=== PATIENT | female | born 1930 | race Hispanic/Latino ===

== ENCOUNTER 2017-07-19 17:38 | Observation (INO) | payer MEDICARE, BC ==
[2017-07-19 18:20] LABS: BASO # 0.1 K/mm3 (0.0-2.0); BASO % 0.9 % (0.0-3.0); EOS # 0.2 (0.0-0.7); EOS % 1.8 % (1.5-5.0); GRAN # 9.21 (1.4-6.5); GRAN % 81.5 % (50.0-68.0); HEMOGLOBIN 13.5 g/dL (12.0-16.0); LYMPH # 1.4 (1.2-3.4); LYMPH % 12.2 % (22.0-35.0); MEAN CELL VOLUME 88.9 fl (80.0-105.0); MEAN CORPUSCULAR HEMOGLOBIN 29.9 pg (25.0-35.0); MEAN CORPUSCULAR HGB CONC 33.6 g/dl (31.0-37.0); MEAN PLATELET VOLUME 9.8 fl (7.0-11.0); MONO # 0.4 (0.1-0.6); MONO % 3.6 % (1.0-6.0); RBC 4.52 10^6/uL (3.5-6.1); RED CELL DISTRIBUTION WIDTH 14.5 % (11.5-14.5); WHITE BLOOD COUNT 11.3 10^3/ul (4.5-11.0)
[2017-07-19 18:35] LABS: INR 1.08 (0.93-1.08); PARTIAL THROMBOPLASTIN TIME 28.7 Seconds (25.1-36.5); PROTHROMBIN TIME 12.3 SECONDS (9.4-12.5)
[2017-07-19 19:07] LABS: ALB/GLOB RATIO 1.2 (1.1-1.8); ALBUMIN 4.6 g/dL (3.0-4.8); ALT/SGPT 30 U/L (7-56); AST/SGOT 34 U/L (14-36); BLOOD UREA NITROGEN 38 mg/dL (7-21); CALCIUM 10.6 mg/dL (8.4-10.5); GFR AFRICAN-AMERICAN 40; GFR NON-AFRICAN AMERICAN 33
[2017-07-19 19:16] LABS: TROPONIN I < 0.01 ng/mL
--- NOTE | 2017-07-19 20:33 | ED PDOC ---
Arrival/HPI - General Chief Complaint: Chest Pain Time Seen by Provider: 07/19/17 19:20 Historian: Patient - History of Present Illness Narrative History of Present Illness (Text): 07/19/17 20:29 A 87 year old female, whose past medical history includes hypertension, LBBB, colon CA, pacemaker, and gout, presents to the emergency department complaining of vague chest discomfort. Patient reports also having resolving gout to left foot. Patient denies any fever, chills, cough, associated shortness of breath or any other complaints. No PMD Past Medical History - Provider Review Nursing Documentation Reviewed: Yes - Infectious Disease Hx of Infectious Diseases: None - Reproductive Menopause: Yes - Cardiac Hx Hypertension: Yes Hx Pacemaker: Yes (2 years ago) - Pulmonary Hx Respiratory Disorders: No - Neurological Hx Neurological Disorder: No - HEENT Hx HEENT Disorder: No - Renal Hx Renal Disorder: No - Endocrine/Metabolic Hx Endocrine Disorders: No - Hematological/Oncological Hx Cancer: Yes (Colon) Hx Chemotherapy: No - Integumentary Hx Dermatological Disorder: No - Musculoskeletal/Rheumatological Hx Gout: Yes Other/Comment: Gout - Gastrointestinal Hx Colostomy: Yes - Genitourinary/Gynecological Hx Genitourinary Disorders: No - Psychiatric Hx Depression: No Hx Emotional Abuse: No Hx Physical Abuse: No Hx Substance Use: No - Surgical History Other/Comment: Colon Resection - Anesthesia Hx Anesthesia Reactions: No Hx Malignant Hyperthermia: No - Suicidal Assessment Feels Threatened In Home Enviroment: No Family/Social History - Physician Review Nursing Documentation Reviewed: Yes Family/Social History: No Known Family HX Smoking Status: Never Smoked Hx Alcohol Use: No Hx Substance Use: No Hx Substance Use Treatment: No Allergies/Home Meds Allergies/Adverse Reactions: Allergies No Known Allergies Allergy (Verified 05/08/15 18:47) Home Medications: Home Meds Medication Instructions Recorded Confirmed Furosemide [Lasix] 20 mg PO DAILY 07/19/17 07/19/17 diltiaZEM CD [Cardizem CD] 240 mg PO DAILY 07/19/17 07/19/17 Review of Systems - Physician Review All systems were reviewed & negative as marked: Yes - Review of Systems Constitutional: absent: Fevers Respiratory: absent: SOB, Cough Cardiovascular: Other (vauge chest discomfort) Physical Exam Vital Signs Reviewed: Yes Vital Signs Temp Pulse Resp BP Pulse Ox 07/19/17 17:58 97.5 F L 70 18 159/72 H 99 Temperature: Afebrile Blood Pressure: Hypertensive Pulse: Regular Respiratory Rate: Normal Appearance: Positive for: Well-Appearing Pain Distress: None Mental Status: Positive for: Alert and Oriented X 3 - Systems Exam Head: Present: Atraumatic, Normocephalic Pupils: Present: PERRL Extroacular Muscles: Present: EOMI Conjunctiva: Present: Normal Mouth: Present: Moist Mucous Membranes Neck: Present: Normal Range of Motion Respiratory/Chest: Present: Clear to Auscultation, Good Air Exchange. No: Respiratory Distress, Accessory Muscle Use Cardiovascular: Present: Regular Rate and Rhythm, Normal S1, S2. No: Murmurs Abdomen: Present: Normal Bowel Sounds. No: Tenderness, Distention, Peritoneal Signs Back: Present: Normal Inspection Upper Extremity: Present: Normal Inspection. No: Cyanosis, Edema Lower Extremity: Present: Normal Inspection. No: Edema Neurological: Present: GCS=15, CN II-XII Intact, Speech Normal Skin: Present: Warm, Dry, Normal Color. No: Rashes Psychiatric: Present: Alert, Oriented x 3, Normal Insight, Normal Concentration Medical Decision Making ED Course and Treatment: 07/19/17 20:31 Impression: 87 year old female with vague chest discomfort. Normal physical exam. Plan: -- EKG -- Chest X-ray -- Aspirin -- Reassess and disposition Progress Notes: Reviewed shows, NSR at 64 bpm. 1st degree AV block. LBBB. 07/19/17 21:00 Chest X-ray reviewed, shows no acute processes. Case discussed with Dr. Deras, who is aware and agrees with plan. Accepts pt in his service. Pt will go to Telemetry observation for chest pain. - Lab Interpretations Lab Results: 07/19/17 18:00 07/19/17 18:00 Lab Results 07/19/17 18:00: Sodium 134, Potassium 4.4, Chloride 94 L, Carbon Dioxide 27, Anion Gap 18, BUN 38 H, Creatinine 1.5 H, Est GFR ( Amer) 40, Est GFR ( Non-Af Amer) 33, Random Glucose 113 H, Calcium 10.6 H, Total Bilirubin 0.8, AST 34, ALT 30, Alkaline Phosphatase 88, Lactate Dehydrogenase 662, Total Creatine Kinase 68, Troponin I < 0.01 D, Total Protein 8.6 H, Albumin 4.6, Globulin 4.0 , Albumin/Globulin Ratio 1.2 07/19/17 18:00: PT 12.3, INR 1.08, APTT 28.7 07/19/17 18:00: WBC 11.3 H, RBC 4.52, Hgb 13.5, Hct 40.2, MCV 88.9, MCH 29.9, MCHC 33.6, RDW 14.5, Plt Count 267, MPV 9.8, Gran % 81.5 H, Lymph % (Auto) 12.2 L, [place] % (Auto) 3.6, Eos % (Auto) 1.8, Baso % (Auto) 0.9, Gran # 9.21 H, Lymph # 1.4, [place] # 0.4, Eos # 0.2, Baso # 0.10 I have reviewed the lab results: Yes - RAD Interpretation Radiology Orders: 07/19/17 18:10 CHEST PORTABLE [RAD] Stat Checkman: ED Physician - EKG Interpretation Interpreted by ED Physician: Yes Type: 12 lead EKG - Medication Orders Current Medication Orders: Discontinued Medications Aspirin (Aspirin) 325 mg PO ONCE STA Stop: 07/19/17 19:29 Last Admin: 07/19/17 19:52 Dose: 325 mg - Scribe Statement The provider has reviewed the documentation as recorded by the Kayli Smith Provider Scribe Attestation: All medical record entries made by the Kayli were at my direction and personally dictated by me. I have reviewed the chart and agree that the record accurately reflects my personal performance of the history, physical exam, medical decision making, and the department course for this patient. I have also personally directed, reviewed, and agree with the discharge instructions and disposition. Disposition/Present on Arrival - Present on Arrival Any Indicators Present on Arrival: No History of DVT/PE: No History of Uncontrolled Diabetes: No Urinary Catheter: No History of Decub. Ulcer: No History Surgical Site Infection Following: None - Disposition Have Diagnosis and Disposition been Completed?: Yes Diagnosis: Chest pain Disposition: HOSPITALIZED Disposition Time: 21:12 Patient Problems: Current Active Problems Problem Status Onset Chest pain Acute Condition: STABLE
[2017-07-19 23:41] VITALS: BMI 39.0
[2017-07-20 05:20] VITALS: O2SAT 98
--- NOTE | 2017-07-20 09:42 | RAD ---
HISTORY: Chest discomfort COMPARISON: 05/08/2015 FINDINGS: LUNGS: The lungs are well inflated and clear. PLEURA: No significant pleural effusion identified, no pneumothorax apparent. CARDIOVASCULAR: There is stable mild cardiomegaly. There is a left-sided dual lead transvenous permanent pacing device. OSSEOUS STRUCTURES: No significant abnormalities. VISUALIZED UPPER ABDOMEN: Normal. OTHER FINDINGS: None. IMPRESSION: No active pulmonary disease.
--- NOTE | 2017-07-20 09:51 | CON ---
DATE: 07/20/2017 HISTORY OF PRESENT ILLNESS: This is an 87-year-old woman, admitted yesterday to the emergency room. She states she felt exhausted on and off for the last 2 weeks. This was worse yesterday. There may have been some shortness of breath. The ER record says there was chest pain, but she denies that there was any pain in her chest. There is no orthopnea, PND, syncope, presyncope, lightheadedness, dizziness, vertigo, edema, claudication, fever, chills, cough, sputum production, hemoptysis, abdominal pain, nausea, vomiting, diarrhea, constipation, melena. PAST MEDICAL HISTORY: Notable for hypertension. She has a chronic left bundle-branch block and a permanent pacemaker. This has been checked in the recent past and has been functioning normally according to her. She has a history of colon cancer with resection. She has a history of gout. There is no history of rheumatic fever, myocardial infarction, angina, stroke, TIA, diabetes, hyperlipidemia. MEDICATIONS: Include Lasix and diltiazem. ALLERGIES: THERE ARE NO MEDICATION ALLERGIES. FAMILY HISTORY: Noncontributory. SOCIAL HISTORY: She lives at home. She is a nonsmoker. She does not drink alcohol. She is ambulatory. REVIEW OF SYSTEMS: Ten-point review of systems is otherwise unremarkable except as noted above. PHYSICAL EXAMINATION: GENERAL: She is a well-developed woman, lying in bed on telemetry, in no acute distress. VITAL SIGNS: She is in sinus rhythm with intermittent ventricular pacing, she is afebrile, blood pressure 171/90, respirations 18 to 20, O2 sat 97-100% on room air. HEENT: Reveals no neck vein distention, thyromegaly, carotid bruits. Mucous membranes moist. Conjunctivae pink. NECK: Supple. LUNGS: Lung mariee clear. HEART: Examination of the heart revealed normal first and second heart sounds. ABDOMEN: Soft. Bowel sounds are present. No mass, organomegaly, tenderness, rebound, guarding. No CVA tenderness. No palpable abdominal aortic aneurysm. EXTREMITIES: Revealed no cyanosis, clubbing or edema. NEUROLOGIC: She is awake, alert, oriented. PSYCHIATRIC: Normal as to mood and affect. SKIN: Warm and dry. No rash or cellulitis. LABORATORY AND IMAGING: EKG demonstrates sinus rhythm, first-degree heart block, left bundle-branch block. ST-T wave changes. Basically unchanged from a prior EKG. A portable chest x-ray is not yet interpreted. To me, there is no evidence of congestive heart failure, infiltrate or effusion. There is a permanent pacemaker in place. It is a portable study. CBC is unremarkable. White count was elevated at 11,300. PT, INR, PTT are normal. Electrolytes: BUN unremarkable, creatinine 1.5, blood sugar 113, calcium 10.6. LFTs unremarkable. CK 68. Two troponins are negative. IMPRESSION: Ember Scott is an 87-year-old woman with a pacemaker, history of hypertension, on Lasix and diltiazem, who presents with recent exhaustion, possibly some shortness of breath and mention of chest pain in the chart, which she currently denies. I will review her office records and she follows with Dr. Bolton in our office. She can be out of bed. I will check an echocardiogram. She can be considered for nuclear stress testing if this has not been done recently. This can be done on an outpatient basis. We will monitor on telemetry. If her pacemaker has not been checked recently, we will arrange for this, but according to the patient, her pacemaker followup has been normal and recent. I will resume the diltiazem. I will follow along with you. I will make additional recommendations based on her clinical course. John Maynard MD [facility]
[2017-07-20] MEDS ORDERED: diltiaZEM 240 mg/24 Hours CD Cap PO SCH (10:00)
[2017-07-20] MEDS ORDERED: Docusate-Senna 50 mg-8.6 mg Tab PO ONE (11:30)
[2017-07-20 11:50] VITALS: BP 170/73; PULSE 74; RESP 20; TEMP 97.6
[2017-07-20 12:00] LABS: CALCIUM 9.7 mg/dL (8.4-10.5); MAGNESIUM 1.9 mg/dL (1.7-2.2)
[2017-07-20 12:12] LABS: T4 7.1 ug/dL (5.5-11.0)
[2017-07-20] MEDS ORDERED: Potassium Chloride 20 mEq ER Tab PO ONE (13:22)
--- NOTE | 2017-07-20 18:17 | CARD ---
APPROVED REPORT EKG Measurement Heart [id number] <Conclusion> Sinus rhythm with 1st degree AV block Left axis deviation Left bundle branch block Abnormal ECG
--- NOTE | 2017-07-21 00:11 | HP ---
CHIEF COMPLAINT AND HISTORY OF PRESENT ILLNESS: This is an 87-year-old female who is coming into the hospital with complaints of weakness. She states she feels exhausted when she tries to ambulate. She states she started getting this exertion with possible shortness of breath. She states she does not have any chest pain. She has no syncope. No dizziness. No nausea. No abdominal pain or back pain. No dysuria or frequency. No nocturia. She states otherwise she feels well. She continues to work at local [employer]. REVIEW OF SYSTEMS: All other review of symptoms are within normal limits except what is mentioned. ALLERGIES: NO KNOWN DRUG ALLERGIES. MEDICATIONS: Lasix and diltiazem. PAST MEDICAL HISTORY: 1. Hypertension. 2. Permanent pacemaker. 3. Colon cancer with resection. SOCIAL HISTORY: She does not drink or smoke. She continues to work. PHYSICAL EXAMINATION: VITAL SIGNS: Temperature is 97.6, pulse of 74, blood pressure 170/72 and respiration is 20. Height is 5 feet, weight is 200 pounds, BMI is 39.1. GENERAL: The patient lying in bed, uncomfortable, and in no acute distress. HEENT: Atraumatic and normocephalic. Anicteric sclerae. Moist mucosa. [place] conjunctivae. No oral lesions. NECK: No JVD, anterior and posterior adenopathy, thyromegaly, or bruits. CARDIOVASCULAR: S1 and S2 regular. No murmur, rubs, or gallop. LUNGS: Clear to auscultation bilaterally. No wheezes, rales, or rhonchi. ABDOMEN: Bowel sounds are positive. Soft, nontender and nondistended. No hepatosplenomegaly. No rebound and no guarding. EXTREMITIES: No cyanosis, clubbing, or edema. NEUROLOGIC: No facial asymmetry. Tongue is midline. No uvula deviation. Power is 5/5 upper extremity and lower extremity. Sensation intact in upper extremity and lower extremity. PSYCHIATRIC: She is awake, alert and oriented x3. No anxiety or depression. She has normal affect. GENITOURINARY: No CVA tenderness. VASCULAR: 2+ pulses in the carotid pulses and pedal pulses. SKIN: No erythema or nodules. SPINE: Shows normal curvature. LABORATORY DATA: White count of 11.3 and hemoglobin is 13.5. INR is 1.08. Chemistry shows a creatinine at 1.3, potassium is 3.5 and calcium is 9.7. Chest x-ray done shows no active disease. EKG shows sinus rhythm with first degree block. Second troponin x3 is negative. ASSESSMENT: 1. Fatigue. 2. Hypertension. 3. Pacemaker. 4. Obese with a body mass index of 39. PLAN: The patient is complaining of possible angina symptoms. I thought to tell the patient also came in with acute kidney injury, she has improvement of her creatinine, is 1.3. The patient is placed on potassium for borderline potassium. She had two troponins, which were negative. The patient was seen by Cardiology. An echo has been done and results are pending. The patient is going to be discharged home. She was cleared by Dr. Maynard. The patient had a stress test about two years ago. She will follow up with Dr. Maynard for possible repeat stress test. CONDITION: Stable. ACTIVITY: Increase as tolerated. Jonathan Deras MD
--- NOTE | 2017-07-21 09:52 | CARD ---
APPROVED REPORT EXAM: Two-dimensional and M-mode echocardiogram with Doppler and color Doppler. Other Information Quality : AverageRhythm : INDICATION Dyspnea 2D DIMENSIONS Left Atrium (2D)4.9 (1.6-4.0cm)IVSd1.2 (0.7-1.1cm) LVDd4.4 (3.9-5.9cm)PWd1.2 (0.7-1.1cm) LVDs3.2 (2.5-4.0cm)FS (%) 26.4 % LVEF (%)52.0 (>50%) M-Mode DIMENSIONS Aortic Root3.30 (2.2-3.7cm)Aortic Cusp Exc.1.80 (1.5-2.0cm) Aortic Valve AoV Peak Rjvpdkdr907.0cm/Asim Peak GR.8mmHg Mitral Valve MV E Isiwgtgw08.6cm/sMV A Jhyqbdzu563.0cm/sE/A ratio0.8 TDI Lateral E' Peak V4.19cm/sMedial E' Peak V5.85cm/sE/Lateral E'19.0 E/Medial E'13.6 Pulmonary Valve PV Peak Echupuzf28.2cm/sPV Peak Grad.2mmHg Tricuspid Valve TR Peak Efeyylrb166bp/sRAP ZEWXYSNH16irHpIS Peak Gr.34mmHg [id number] LEFT VENTRICLE The left ventricle is normal size. There is normal left ventricular wall thickness. The left ventricular function is normal. The left ventricular ejection fraction is within the normal range. There is normal LV segmental wall motion. RIGHT VENTRICLE The right ventricle is normal size. ATRIA The left atrium is mildly dilated. The right atrium size is normal. The interatrial septum is intact with no evidence for an atrial septal defect. AORTIC VALVE The aortic valve is normal in structure. MITRAL VALVE The mitral valve is normal in structure. Mitral annular calcification is moderate. Mitral regurgitation is mild. TRICUSPID VALVE The tricuspid valve is normal in structure. There is mild tricuspid regurgitation. GREAT VESSELS The aortic root is normal in size. PERICARDIAL EFFUSION There is no pericardial effusion. <Conclusion> The left ventricle is normal size. There is normal left ventricular wall thickness. The left ventricular function is normal. Mitral regurgitation is mild. There is mild tricuspid regurgitation.
== END 2017-07-20 16:43 | disposition home or self-care (01) ==
LOC: ED 17:38 → ERH 20:17 → 2RSO 22:01
PROVIDERS: ADMIT Internal Medicine Nephrology; ATTEND Internal Medicine Nephrology
DX: R07.89 Other chest pain (principal); I10 Essential (primary) hypertension; I44.7 Left bundle-branch block, unspecified; M10.9 Gout, unspecified; R53.1 Weakness; E66.9 Obesity, unspecified; Z68.39 Body mass index [BMI] 39.0-39.9, adult; Z85.038 Personal history of other malignant neoplasm of large intestine; Z95.0 Presence of cardiac pacemaker; Z93.3 Colostomy status
CPT/HCPCS: 36415; 71045; 80048; 80053; 80061; 82550; 83615; 83735; 84436; 84443; 84484; 84550; 85025; 85610; 85730; 93005; 93306; 99285; G0378

== ENCOUNTER 2018-04-12 16:23 | Inpatient (IN) | payer MEDICARE, BC ==
[2018-04-12 16:25] VITALS: BMI 45.8
--- NOTE | 2018-04-12 17:18 | ED PDOC ---
Arrival/HPI - General Chief Complaint: Shortness Of Breath Time Seen by Provider: 04/12/18 16:31 Historian: Patient - History of Present Illness Narrative History of Present Illness (Text): 04/12/18 16:57 87yo female with pmhx of hypertension , LBBB with pacemaker in place bib EMS from the PMD office for SOB and lower extremity edema. The daughter by the bedside notes that patient was taken off her diuretics months ago and she had been having SOB and increase edema. Patient report orthopnea. States she saw her Commander [facility] Affairs 2days ago for the symptoms and was told that all test was negative. states she was given rx for diuretic to take as needed. She did not take it today and yesterday. She saw Dr. gardner today and he referred her to ED for further evaluation. She states that she feel swollen all over. She states SOB is usually at night. Denies chest pain, fever, chills, diaphoresis, sick contact, travel, any other compliant. Past Medical History - Provider Review Nursing Documentation Reviewed: Yes - Infectious Disease Hx of Infectious Diseases: None - Cardiac Hx Cardiac Disorders: Yes Hx Hypertension: Yes Hx Pacemaker: Yes Other/Comment: LBBB - Pulmonary Hx Respiratory Disorders: No - Neurological Hx Neurological Disorder: No - HEENT Hx HEENT Disorder: No - Renal Hx Renal Disorder: No - Endocrine/Metabolic Hx Endocrine Disorders: No - Hematological/Oncological Hx Cancer: Yes (Colon) Hx Chemotherapy: No - Integumentary Hx Dermatological Disorder: No - Musculoskeletal/Rheumatological Hx Musculoskeletal Disorders: Yes Hx Arthritis: Yes Hx Falls: No Hx Gout: Yes - Gastrointestinal Hx Gastrointestinal Disorders: No - Genitourinary/Gynecological Hx Genitourinary Disorders: No - Psychiatric Hx Psychophysiologic Disorder: No Hx Substance Use: No - Surgical History Hx Appendectomy: Yes Other/Comment: Colon Resection, tonsillectomy - Anesthesia Hx Anesthesia Reactions: No Hx Malignant Hyperthermia: No - Suicidal Assessment Feels Threatened In Home Enviroment: No Family/Social History - Physician Review Nursing Documentation Reviewed: Yes Family/Social History: Unknown Family HX Smoking Status: Never Smoked Hx Alcohol Use: No Hx Substance Use: No Hx Substance Use Treatment: No Allergies/Home Meds Allergies/Adverse Reactions: Allergies No Known Allergies Allergy (Verified 04/12/18 16:25) Home Medications: Home Meds Medication Instructions Recorded Confirmed Furosemide [Lasix] 20 mg PO DAILY 07/19/17 04/12/18 diltiaZEM CD [Cardizem CD] 240 mg PO DAILY 07/19/17 04/12/18 Lidocaine 5% [Lidoderm] 0 patch TOP DAILY 04/12/18 04/12/18 Review of Systems - Physician Review All systems were reviewed & negative as marked: Yes - Review of Systems Constitutional: Normal Eyes: Normal ENT: Normal Respiratory: SOB. absent: Cough, Sputum Cardiovascular: Orthopnea. absent: Edema Gastrointestinal: Normal Genitourinary Female: Normal Musculoskeletal: Normal Skin: Normal Neurological: Normal Endocrine: Normal Hemo/Lymphatic: Normal Psychiatric: Normal Physical Exam Vital Signs Reviewed: Yes Vital Signs Temp Pulse Resp BP Pulse Ox 04/12/18 16:28 97.4 F L 85 18 153/81 H 94 L Temperature: Afebrile Blood Pressure: Normal Pulse: Regular Respiratory Rate: Normal Appearance: Positive for: Well-Appearing, Non-Toxic, Comfortable, Other (Morbidly obese) Pain Distress: None Mental Status: Positive for: Alert and Oriented X 3 - Systems Exam Head: Present: Atraumatic, Normocephalic Pupils: Present: PERRL Extroacular Muscles: Present: EOMI Conjunctiva: Present: Normal Mouth: Present: Moist Mucous Membranes Neck: Present: Normal Range of Motion Respiratory/Chest: Present: Clear to Auscultation, Good Air Exchange. No: Respiratory Distress, Accessory Muscle Use, Wheezes, Decreased Breath Sounds, Rales, Retracting, Rhonchi Cardiovascular: Present: Regular Rate and Rhythm, Normal S1, S2. No: Murmurs Abdomen: No: Tenderness, Distention, Peritoneal Signs Back: Present: Normal Inspection Upper Extremity: Present: Normal Inspection. No: Cyanosis, Edema Lower Extremity: Present: Edema (3+ pitting edema b/l) Neurological: Present: GCS=15, CN II-XII Intact, Speech Normal Skin: Present: Warm, Dry, Normal Color. No: Rashes Psychiatric: Present: Alert, Oriented x 3, Normal Insight, Normal Concentration Medical Decision Making ED Course and Treatment: 04/12/18 19:20 87yo female who was referred to ED by Dr. Gardner for SOB and LE edema. Pt was at 94% on NC in ED. She was not in any distress. Labs EKG LE US BNP Car Iso CXR Labs was evaluated and BNP of 1979 was noted CXR NAD. Moderate Cardiomegaly Doppler US was negative b/l EKG Complete paced rhythm @ 99bpm Lasix ordered. Pt will be admitted for CHF Case was JUAN gardner and he agreed with plan case was JUAN Deras and pt was admitted to his service. Result and plan was DW both pt and the daughter and they agreed - RAD Interpretation Radiology Orders: 04/12/18 16:39 DUPLEX LOWER EXTRM VEIN BILAT [US] Stat 04/12/18 16:40 CHEST PORTABLE [RAD] Stat Disposition/Present on Arrival - Present on Arrival Any Indicators Present on Arrival: No History of DVT/PE: No History of Uncontrolled Diabetes: No Urinary Catheter: No History of Decub. Ulcer: No History Surgical Site Infection Following: None - Disposition Have Diagnosis and Disposition been Completed?: Yes Diagnosis: Congestive heart failure Disposition: HOSPITALIZED Disposition Time: 18:20 Patient Plan: Admission Patient Problems: Current Active Problems Problem Status Onset Congestive heart failure Acute Condition: STABLE
--- NOTE | 2018-04-12 17:23 | RAD ---
Date of service: 04/12/2018 HISTORY: SOB COMPARISON: 07/19/2017 FINDINGS: LUNGS: The lungs are well inflated and clear. PLEURA: No pleural effusions or pneumothorax. CARDIOVASCULAR: There is persistent moderate cardiomegaly. There is stable position of left-sided permanent pacing device. No aortic atherosclerotic calcification present. OSSEOUS STRUCTURES: Within normal limits for the patient's age. VISUALIZED UPPER ABDOMEN: Normal. OTHER FINDINGS: None. IMPRESSION: No acute findings.
[2018-04-12 17:49] LABS: VENOUS BLOOD GAS BASE EXCESS 3.9 mmol/L (0.0-2.0); VENOUS BLOOD GAS PO2 57 mm/Hg (30-55); VENOUS BLOOD PH 7.34 (7.32-7.43)
[2018-04-12 17:55] LABS: ALB/GLOB RATIO 1.2 (1.1-1.8); ALBUMIN 4.2 g/dL (3.0-4.8); ALT/SGPT 25 U/L (7-56); AST/SGOT 40 U/L (14-36); BLOOD UREA NITROGEN 23 mg/dL (7-21); CALCIUM 9.1 mg/dL (8.4-10.5); GFR NON-AFRICAN AMERICAN 59
[2018-04-12 17:58] LABS: BASO # 0.04 K/mm3 (0.0-2.0); BASO % 0.6 % (0.0-3.0); EOS # 0.2 (0.0-0.7); EOS % 2.1 % (1.5-5.0); GRAN # 5.6 (1.4-6.5); GRAN % 78.6 % (50.0-68.0); HEMOGLOBIN 11.7 g/dL (12.0-16.0); LYMPH % 13.9 % (22.0-35.0); MEAN CELL VOLUME 89.4 fl (80.0-105.0); MEAN CORPUSCULAR HEMOGLOBIN 28.8 pg (25.0-35.0); MEAN CORPUSCULAR HGB CONC 32.2 g/dl (31.0-37.0); MEAN PLATELET VOLUME 9.6 fl (7.0-11.0); MONO # 0.3 (0.1-0.6); MONO % 4.8 % (1.0-6.0); RBC 4.06 10^6/uL (3.5-6.1); RED CELL DISTRIBUTION WIDTH 15.3 % (11.5-14.5); WHITE BLOOD COUNT 7.1 10^3/ul (4.5-11.0)
[2018-04-12 18:04] LABS: B-TYPE NATRIURETIC PEPTIDE 1980 pg/mL (0-450); TROPONIN I < 0.01 ng/mL
[2018-04-12 20:54] LABS: INR 1.21; PARTIAL THROMBOPLASTIN TIME 24.3 Seconds (25.1-36.5); PROTHROMBIN TIME 13.8 SECONDS (9.4-12.5)
--- NOTE | 2018-04-12 21:13 | CARD ---
APPROVED REPORT Date of service: 04/12/2018 EKG Measurement Heart [id number] <Conclusion> Electronic ventricular pacemaker
[2018-04-12 22:45] LABS: PH,URINE 5.5 (4.7-8.0); URINE APPEARANCE CLEAR (CLEAR); URINE BILIRUBIN NEGATIVE (NEGATIVE); URINE BLOOD NEGATIVE (NEGATIVE); URINE COLOR YELLOW (YELLOW); URINE GLUCOSE (UA) NEGATIVE (NEGATIVE); URINE LEUKOCYTE ESTERASE NEGATIVE Leu/uL (NEGATIVE); URINE PROTEIN NEGATIVE mg/dL (<30 mg/dL); URINE UROBILINOGEN 0.2 E.U./dL (<1 E.U./dL)
--- NOTE | 2018-04-13 07:48 | CP.PCM.HP ---
<Debora Rothman - Last Filed: 04/13/18 12:35> History of Present Illness - History of Present Illness History of Present Illness: PGY-3 H&P [address] Dr. Deras's service 87 yo female with pmh of hypertension , LBBB with pacemaker presented to ED for SOB and leg swelling. Patient was brought in by EMS from the PMD office. Patients states thats has a history of lower extremity swelling but normally take lasix but was taken off her diuretic about 2 weeks to 1 month ago by her PMD. Over the past week she has had increase swelling of her legs and sob. She states SOB is usually at night She also reports occasional orthopnea. States she saw her Methodologist 2 days ago for the symptoms and was given lasix for diuretic as needed. However she did not take it for jayme past few days. She states that she felt swollen all over, but feels better this morning. Patient denies chest pain, fever, chills, diaphoresis, headache, dizziness, abd pain, n/v, urinary symptoms. She also denies sick contacts and travel. No other complaints. 12 point ROS was negative except as stated. 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 meds: lasix, Cardizem allergy: nkda Present on Admission - Present on Admission Any Indicators Present on Admission: No Review of Systems - Review of Systems All systems: reviewed and no additional remarkable complaints except Past Patient History - Infectious Disease Hx of Infectious Diseases: None - Past Social History Smoking Status: Never Smoked - CARDIAC Hx Cardiac Disorders: Yes Hx Hypertension: Yes Hx Pacemaker: Yes Other/Comment: LBBB - PULMONARY Hx Respiratory Disorders: No - NEUROLOGICAL Hx Neurological Disorder: No - HEENT Hx HEENT Problems: No - RENAL Hx Chronic Kidney Disease: No - ENDOCRINE/METABOLIC Hx Endocrine Disorders: No - HEMATOLOGICAL/ONCOLOGICAL Hx Cancer: Yes (Colon) Hx Chemotherapy: No - INTEGUMENTARY Hx Dermatological Problems: No - MUSCULOSKELETAL/RHEUMATOLOGICAL Hx Falls: No - GASTROINTESTINAL Hx Gastrointestinal Disorders: No - GENITOURINARY/GYNECOLOGICAL Hx Genitourinary Disorders: No - PSYCHIATRIC Hx Psychophysiologic Disorder: No - SURGICAL HISTORY Hx Appendectomy: Yes Other/Comment: Colon Resection, tonsillectomy - ANESTHESIA Hx Anesthesia Reactions: No Hx Malignant Hyperthermia: No Meds Allergies/Adverse Reactions: Allergies Allergy/AdvReac Type Severity Reaction Status Date / Time No Known Allergies Allergy Verified 04/12/18 16:25 Physical Exam - Constitutional Appears: No Acute Distress - Head Exam Head Exam: ATRAUMATIC, NORMAL INSPECTION, NORMOCEPHALIC - Eye Exam Eye Exam: EOMI, Normal appearance, PERRL. absent: Conjunctival injection, Periorbital swelling, Periorbital tenderness, Scleral icterus - ENT Exam ENT Exam: Mucous Membranes Moist, Normal External Ear Exam. absent: Mucous Membranes Dry - Neck Exam Neck exam: Positive for: Full Rom. Negative for: Lymphadenopathy, Meningismus, Tenderness - Respiratory Exam Respiratory Exam: Clear to Auscultation Bilateral, NORMAL BREATHING PATTERN. absent: Accessory Muscle Use, Chest Wall Tenderness, Decreased Breath Sounds, Rales, Rhonchi, Wheezes, Respiratory Distress, Stridor - Cardiovascular Exam Cardiovascular Exam: REGULAR RHYTHM, RRR, +S1, +S2, Systolic Murmur. absent: Bradycardia, Tachycardia, Diastolic murmur - GI/Abdominal Exam GI & Abdominal Exam: Distended, Normal Bowel Sounds, Soft, Tenderness. absent: Diminished Bowel Sounds, Firm, Guarding, Organomegaly, Rebound - Extremities Exam Extremities exam: Positive for: full ROM. Negative for: calf tenderness, tenderness Additional comments: swelling, pitting edema +1 bilateral lower extremities - Back Exam Back exam: NORMAL INSPECTION. absent: paraspinal tenderness, vertebral tenderness - Neurological Exam Neurological exam: Alert, Oriented x3 Additional comments: strength 5/5 all extremities, no confusion - Psychiatric Exam Psychiatric exam: Normal Affect, Normal Mood Additional comments: no agitation, anxiety, depression - Skin Skin Exam: Dry, Intact, Normal Color, Warm Additional comments: no rash, abrasions. Results - Vital Signs Recent Vital Signs: Last Vital Signs Temp 98.1 F 04/13/18 00:15 Pulse 60 04/13/18 06:00 Resp 18 04/13/18 00:15 BP 117/72 04/13/18 01:07 Pulse Ox 98 04/13/18 00:15 - Labs Result Diagrams: 04/12/18 17:16 04/12/18 17:16 Labs: Laboratory Results - last 24 hr 04/12/18 04/12/18 04/12/18 17:16 17:16 17:16 WBC 7.1 D RBC 4.06 Hgb 11.7 L Hct 36.3 MCV 89.4 MCH 28.8 MCHC 32.2 RDW 15.3 H Plt Count 256 MPV 9.6 Gran % 78.6 H Lymph % (Auto) 13.9 L [place] % (Auto) 4.8 Eos % (Auto) 2.1 Baso % (Auto) 0.6 Gran # 5.60 Lymph # (Auto) 1.0 L [place] # (Auto) 0.3 Eos # (Auto) 0.2 Baso # (Auto) 0.04 PT INR APTT pO2 57 H VBG pH 7.34 VBG pCO2 58.0 VBG HCO3 31.3 H VBG Total CO2 33.1 H VBG O2 Sat (Calc) 91.8 H VBG Base Excess 3.9 H VBG Potassium 6.8 H* Sodium 132.0 133 Chloride 98.0 96 L Glucose 94 Lactate 1.5 FiO2 21.0 Potassium 4.3 Carbon Dioxide 29 Anion Gap 13 BUN 23 H Creatinine 0.9 Est GFR ( Amer) > 60 Est GFR (Non-Af Amer) 59 Random Glucose 101 Calcium 9.1 Magnesium 2.0 Total Bilirubin 0.7 AST 40 H ALT 25 Alkaline Phosphatase 69 Lactate Dehydrogenase 593 Total Creatine Kinase 98 Troponin I < 0.01 D NT-Pro-B Natriuret Pep 1980 H Total Protein 7.7 Albumin 4.2 Globulin 3.5 Albumin/Globulin Ratio 1.2 Venous Blood Potassium 6.8 H* Urine Color Urine Appearance Urine pH Ur Specific [place] Urine Protein Urine Glucose (UA) Urine Ketones Urine Blood Urine Nitrate Urine Bilirubin Urine Urobilinogen Ur Leukocyte Esterase 04/12/18 04/12/18 20:36 22:34 WBC RBC Hgb Hct MCV MCH MCHC RDW Plt Count MPV Gran % Lymph % (Auto) [place] % (Auto) Eos % (Auto) Baso % (Auto) Gran # Lymph # (Auto) [place] # (Auto) Eos # (Auto) Baso # (Auto) PT 13.8 H INR 1.21 APTT 24.3 L pO2 VBG pH VBG pCO2 VBG HCO3 VBG Total CO2 VBG O2 Sat (Calc) VBG Base Excess VBG Potassium Sodium Chloride Glucose Lactate FiO2 Potassium Carbon Dioxide Anion Gap BUN Creatinine Est GFR ( Amer) Est GFR (Non-Af Amer) Random Glucose Calcium Magnesium Total Bilirubin AST ALT Alkaline Phosphatase Lactate Dehydrogenase Total Creatine Kinase Troponin I NT-Pro-B Natriuret Pep Total Protein Albumin Globulin Albumin/Globulin Ratio Venous Blood Potassium Urine Color Yellow Urine Appearance Clear Urine pH 5.5 Ur Specific [place] 1.010 Urine Protein Negative Urine Glucose (UA) Negative Urine Ketones Negative Urine Blood Negative Urine Nitrate Negative Urine Bilirubin Negative Urine Urobilinogen 0.2 Ur Leukocyte Esterase Negative Assessment & Plan - Assessment and Plan (Free Text) Assessment: - CHF exacerbation - r/o DVT - h/o HTN Labs and imaging reviewed. Patient received lasox 60 overnight, will continue lasix 40mg IVF. Pro BNP was elevated. Trops negative tomes 1, repeat ordered. cardiology is consulted. Echo from 07/20/17 showed EF of 52%, RVSP of 44, no left ventricular size and function. Lower extremities duplex was done in the ED waiting final read. cxr was negative. BP stable, continue home cardizem. case reviewed nad discussed with Dr. Deras <Jonathan Deras S - Last Filed: 04/13/18 20:52> Results - Vital Signs Recent Vital Signs: Last Vital Signs Temp 98.2 F 04/13/18 19:45 Pulse 70 04/13/18 19:45 Resp 19 04/13/18 19:45 BP 141/73 04/13/18 19:45 Pulse Ox 99 04/13/18 19:45 - Labs Result Diagrams: 04/12/18 17:16 04/12/18 17:16 Labs: Laboratory Results - last 24 hr 04/12/18 04/12/18 04/13/18 20:36 22:34 10:00 PT 13.8 H INR 1.21 APTT 24.3 L Troponin I < 0.01 Urine Color Yellow Urine Appearance Clear Urine pH 5.5 Ur Specific [place] 1.010 Urine Protein Negative Urine Glucose (UA) Negative Urine Ketones Negative Urine Blood Negative Urine Nitrate Negative Urine Bilirubin Negative Urine Urobilinogen 0.2 Ur Leukocyte Esterase Negative Assessment & Plan - Assessment and Plan (Free Text) Assessment: Pt seen and examined. I have reviewed the note of the medical billing coordinator and agree with it. I have discussed the assessment and plan with the resident. I have reviewed the patient's labs and medications. Pt with acute CHF with due to diastolic dysfunction. She was given Lasix and she said she feels better. She had elevated BNP and LE edema. She had LE venous Doppler. Will get cardiology consult.
[2018-04-13] MEDS: diltiaZEM 240 mg/24 Hours CD Cap PO SCH (09:00)
--- NOTE | 2018-04-13 10:06 | CON ---
DATE: 04/13/2018 CONSULTATION INDICATIONS: Dyspnea, edema. HISTORY OF PRESENT ILLNESS: This is an 87-year-old woman, known to our practice, admitted yesterday with increased edema and dyspnea. Apparently, she had been treated with diuretics in the past, but this was discontinued at some point several weeks ago. Since admission, she has received IV Lasix with diuresis of about 500 mL. She feels better. There is no chest pain, shortness of breath at the moment. No orthopnea, PND, syncope, presyncope, lightheadedness, dizziness, vertigo, palpitation, edema, palpitation or claudication. There is significant lower extremity edema. There is no fever, chills, cough, sputum production, hemoptysis, abdominal pain, nausea, vomiting, diarrhea, constipation, melena. PAST MEDICAL HISTORY: Notable for hypertension, left bundle-branch block, permanent pacemaker. She has had colon carcinoma with a resection. There is a history of gout. In June of this year, she was admitted to the hospital. An echocardiogram at that time showed normal LV function with mild MR and mild TR. There is no history of rheumatic fever, myocardial infarction, angina, arrhythmia, stroke, TIA, diabetes. MEDICATIONS: Include diltiazem; Lasix, which had not been taking recently and a Lidoderm patch. ALLERGIES: THERE ARE NO KNOWN MEDICATION ALLERGIES. SOCIAL HISTORY: She lives at home. She does not smoke cigarettes. She does not drink alcohol. FAMILY HISTORY: Noncontributory. REVIEW OF SYSTEMS: Ten-point review of systems is otherwise unremarkable except as noted above. PHYSICAL EXAMINATION: GENERAL: She is a well-developed elderly woman, in no acute distress. VITAL SIGNS: Notable for a ventricular paced rhythm at 60 beats per minute. She is afebrile. Blood pressure 119/76, respirations 18-20, O2 sat 94-98% on nasal cannula. HEENT: Reveals no neck vein distention, thyromegaly, carotid bruits. Mucous membranes moist. Conjunctivae pink. NECK: Supple. LUNGS: Lungs mariee, scattered rhonchi. Few rales at the bases. HEART: Examination of the heart revealed normal first and second heart sounds. PMI is not palpable. ABDOMEN: Soft. Bowel sounds present. No mass, organomegaly, tenderness, rebound, guarding. EXTREMITY: Exam revealed no cyanosis or clubbing. There is [id number] pitting edema of the ankles and shins bilaterally. NEUROLOGICAL: Awake, alert and oriented. PSYCHIATRIC: Normal as to mood and affect. SKIN: Warm and dry. No rash or cellulitis. LABORATORY AND IMAGING: EKG demonstrates ventricular pacing with atrial sensing at 78 beats per minute. A chest x-ray reveals no acute findings. Lower extremity venous Doppler study was done. It is not formally reported, but apparently it was negative. White count normal, hemoglobin 11.7, hematocrit 36.3, platelet count normal. PT 13.8, INR 1.21, PTT 24.3. Venous blood gases are noted. Electrolytes: BUN, creatinine, blood sugar unremarkable. Magnesium normal. LFTs mildly abnormal. AST is noted. CK 98, troponin less than 0.01. BNP 1980. Urinalysis is unremarkable. IMPRESSION: Ember Scott is an 87-year-old woman with hypertension and a permanent pacemaker, admitted with decompensated congestive heart failure, probably diastolic in nature after withdrawal of Lasix therapy several weeks ago. She is responding to IV Lasix with good diuresis and improved symptoms. At this time, she will be admitted to telemetry. She will get diltiazem and IV Lasix. We await the duplex lower extremity report. I will review her old records. She can be out of bed to a chair. We will check stool for occult blood. Monitor inputs and outputs. Repeat labs in the morning. I will repeat a troponin this morning. Overall, a conservative course of cardiac care is anticipated. We will follow along with you. John Maynard MD MTDFany
--- NOTE | 2018-04-13 19:23 | US ---
HISTORY: Leg pain and swelling. Evaluate for DVT PHYSICIAN(S): Edmund Arreola MD. TECHNIQUE: Duplex sonography and color-flow Doppler with graded compression were used to evaluate the deep venous systems of both lower extremities. The exam is very limited by body habitus and edema. The tibial veins are not adequately seen FINDINGS: The visualized deep venous systems of both lower extremities are sonographically normal and compressible. Normal wave forms and augmentation are seen. There is no sonographic evidence for deep venous thrombosis in the visualized segments of both lower extremities. IMPRESSION: No sonographic evidence for deep venous thrombosis in the visualized segments of both lower extremities. Very limited study
[2018-04-14 08:29] LABS: CALCIUM 8.2 mg/dL (8.4-10.5)
[2018-04-14] MEDS: diltiaZEM 240 mg/24 Hours CD Cap PO SCH (10:51)
[2018-04-14] MEDS ORDERED: metOLazone 5 MG TAB PO ONE (11:30)
[2018-04-14] MEDS ORDERED: Potassium Chloride 40 mEq/30 ml LIQ UD PO ONE (11:56)
--- NOTE | 2018-04-14 13:31 | PN ---
DATE: 04/14/2018 SUBJECTIVE: The patient is seen sitting in chair on telemetry. She feels more comfortable. She continues to have leg edema and exertional dyspnea. CURRENT MEDICATIONS: Include Lasix 40 mg daily and diltiazem CD 240 mg daily. PHYSICAL EXAMINATION: GENERAL: She is an obese, very elderly woman. VITAL SIGNS: Her blood pressure is 136/62 with a pulse of 86, respirations are 14. She is afebrile. HEENT: No JVD. CHEST: Bilateral scattered rhonchi. HEART: PMI displaced laterally. Heart tones are distant. ABDOMEN: Soft, obese, nontender. Normoactive bowel sounds. EXTREMITIES: 2-2+ leg edema. DIAGNOSTIC DATA: Potassium 3.5, BUN and creatinine 27 and 1.2. IMPRESSION: 1. Acute diastolic heart failure, predominantly right sided. 2. History of hypertension. 3. Conduction system disease, status post pacemaker implant. 4. Morbid obesity. RECOMMENDATIONS: IV Lasix will be continued for today. One dose of Zaroxolyn will be administered as well. Potassium supplement will be administered and followup BMP planned for the morning. The need for compliance with diuretic therapy as well as sodium restriction was discussed with her. We will be happy to follow along and make further recommendations as needed. Rom Bolton MD MTDD
[2018-04-14] MEDS: Potassium Chloride 20 mEq ER Tab PO SCH (15:06)
--- NOTE | 2018-04-14 23:44 | PN ---
DATE: 04/14/2018 HISTORY OF PRESENT ILLNESS: The patient is 87-year-old female admitted to the hospital with congestive cardiac failure. She had shortness of breath and swelling of the leg. Shortness of breath has improved during hospitalization. She was evaluated by Cardiology, Dr. Maynard. She was found to have CHF. She has history of LBB with pacemaker. PAST MEDICAL HISTORY: Left bundle branch, pacemaker, hypertension, history of colon cancer resection, currently in remission. PAST SURGICAL HISTORY: Colon cancer resection, appendectomy. SOCIAL HISTORY : Never smoked. No history of alcohol abuse. MEDICATIONS: Lasix, Cardizem. ALLERGIES: NO KNOWN DRUG ALLERGIES. REVIEW OF SYSTEMS: As per HPI. Rest of 12-point review of systems reviewed are negative. PHYSICAL EXAMINATION: GENERAL: Comfortable in bed, in no acute distress. VITAL SIGNS: Temperature 98.1, heart rate 60 per minute, respiratory 18 per minute, blood pressure 110/70, pulse ox is 98% on room air. HEENT: Pallor positive. NECK: No lymphadenopathy. CHEST: Air entry present and equal bilaterally. No added sounds. CARDIOVASCULAR: S1, S2 normal. No murmur. No gallop. ABDOMEN: Soft, nontender. No hepatosplenomegaly. EXTREMITIES: No edema. HEAD OF ETHICS AND COMPLIANCE: Alert, oriented x3. No focal, sensory, or motor deficit. LABORATORY DATA: White count 7.1, hemoglobin 11.7, hematocrit 36.3, platelet 256 and granulocyte 78%, lymphocyte 13%. Sodium 133, potassium 3.5 and creatinine 1.2. CURRENT MEDICATIONS: Diltiazem 240 mg p.o. daily, Lasix 40 mg IV daily. ASSESSMENT AND PLAN: 1. Congestive heart failure. 2. Left bundle-branch block with pacemaker. 3. Hypertension. 4. Anemia. 5. History of colon cancer in remission. PLAN: Currently on Cardizem 240 mg daily, heart rate controlled with current medication, Lasix 40 mg daily IV. She is hypokalemic. Potassium, K-Dur 20 mEq p.o. b.i.d. to be given. We will continue to follow blood work in the morning, status improved. Discharge planning. Anemia, hemoglobin 11.7. We will continue to monitor. Stool occult blood has been ordered and collected. Cara Romero MD [facility] # [id number]
[2018-04-15 07:58] LABS: CALCIUM 8.3 mg/dL (8.4-10.5)
[2018-04-15 08:06] VITALS: RESP 20
[2018-04-15] MEDS: diltiaZEM 240 mg/24 Hours CD Cap PO SCH (11:13)
[2018-04-15] MEDS: Potassium Chloride 20 mEq ER Tab PO SCH (11:13)
--- NOTE | 2018-04-15 13:42 | PN ---
DATE: 04/15/2018 FOLLOWUP NOTE SUBJECTIVE: She is comfortable in chair, in no acute distress. Still complaining of swelling of lower extremity of her extremity. She is on aggressive diuresis right now. Admitted with CHF. Shortness of breath has improved. No events overnight. REVIEW OF SYSTEMS: As per HPI. Rest of 12-point review of systems reviewed negative. PHYSICAL EXAMINATION: GENERAL: Comfortable in chair, in no acute distress. VITAL SIGNS: , respiratory rate 16 per minute, blood pressure 110/60, oxygen saturation 98% on room air. HEENT: Pallor positive. NECK: No lymphadenopathy. CHEST: Air entry present and equal, bilateral. No added sounds. CARDIOVASCULAR: S1, S2 normal. No murmur. No gallop. ABDOMEN: Soft, nontender. No hepatosplenomegaly. EXTREMITIES: No edema. CONCAVER: Alert and oriented x3. No focal sensorimotor deficits. LABORATORY DATA: White count 7.1, hemoglobin 11.7, hematocrit 36, platelets 256. Sodium 135, potassium 3.4, creatinine 1.2. MEDICATIONS: Cardizem 250 mg daily, Lasix 40 mg daily, K-Dur 20 mEq daily. ASSESSMENT: 1. Congestive heart failure. 2. Left bundle-branch block with pacemaker. 3. Hypertension. 4. Anemia. 5. History of colon cancer, in remission. PLAN: Currently on Cardizem, aggressive diuresis. Potassium is being repleted, currently on 20 mEq p.o. Daily. Hemoglobin and hematocrit stable now. Encourage ambulation. Bedside physical therapy. Discharge planning possible tomorrow. Dr. Maynard following, note reviewed. Cara Romero MD
--- NOTE | 2018-04-15 13:45 | PN ---
DATE: 04/15/2018 SUBJECTIVE: The patient is seen lying in bed on 3-R. She is currently comfortable. Her edema persists, but is somewhat improved. CURRENT MEDICATIONS: Include diltiazem CD 240 mg daily, Lasix 40 mg daily. PHYSICAL EXAMINATION: GENERAL: She is an obese, very elderly woman. VITAL SIGNS: Her blood pressure is 132/66 with a pulse of 60 with ventricular pacing, respirations are 14. She is afebrile. HEENT: No JVD. CHEST: Few scattered rhonchi. HEART: PMI displaced laterally. Distant tones noted. ABDOMEN: Soft, obese, nontender, normoactive bowel sounds. EXTREMITIES: 2+ leg edema. DIAGNOSTIC DATA: Potassium 3.4. BUN and creatinine 32 and 1.2. IMPRESSION: 1. Acute diastolic heart failure, predominantly right-sided. 2. Conduction system disease, status post permanent pacemaker implant. 3. History of hypothyroidism. 4. History of hypertension. 5. Morbid obesity. RECOMMENDATIONS: Current medications will be continued for today. If she has adequate diuresis, Lasix can be switched to oral administration tomorrow. The need for continued sodium restriction was discussed at length with her. We will continue to follow and make further outpatient as needed. Rom Bolton MD
--- NOTE | 2018-04-16 07:42 | CP.PCM.PN ---
Subjective - Date & Time of Evaluation Date of Evaluation: 04/16/18 Time of Evaluation: 07:00 - Subjective Subjective: Stable on 3R. No CP or SOB. Edema better. Noted to desat. with ambulation yesterday. V/S noted. V. Paced PE: Lungs: clear Cor.: S1S2 Abd.: soft Ext.: mild edema Neuro.: alert I/O: N/A Labs 04/15 noted: K+= 3.4 BC X2 NG at 3 days Objective - Vital Signs/Intake and Output Vital Signs (last 24 hours): Temp Pulse Resp BP Pulse Ox 97.8 F 60 20 140/74 98 04/15/18 17:36 04/16/18 05:25 04/15/18 17:36 04/15/18 17:36 04/15/18 17:36 Intake and Output: 04/16/18 04/16/18 06:59 18:59 Intake Total 360 Balance 360 - Medications Medications: Current Medications Diltiazem HCl (Cardizem Cd) 240 mg PO DAILY [facility] Last Admin: 04/15/18 11:13 Dose: 240 mg Furosemide (Lasix) 40 mg IVP DAILY [facility] Last Admin: 04/15/18 11:13 Dose: 40 mg Potassium Chloride (K-Dur 20 Meq Er Tab) 20 meq PO TID NIKKI - Labs Labs: 04/12/18 17:16 04/15/18 07:00 PT 13.8 SECONDS (9.4-12.5) H 04/12/18 20:36 INR 1.21 04/12/18 20:36 APTT 24.3 Seconds (25.1-36.5) L 04/12/18 20:36 Assessment and Plan - Assessment and Plan (Free Text) Assessment: Dyspnea, Edema Hypoxia on ambulation without O2 CHF, diastolic HBBB LBBB PPM Obesity Colon cancer, s/p resection Mild MR and TR on echo. Plan: Replace K+ Continue IV Lasix OOB/PT/Evaluate hypoxia TCU eval. Monitor: labs, sats., etc.
[2018-04-16] MEDS: diltiaZEM 240 mg/24 Hours CD Cap PO SCH (10:46)
--- NOTE | 2018-04-16 10:46 | CP.PCM.PN ---
<Teja Alfonso - Last Filed: 04/16/18 18:03> Subjective - Date & Time of Evaluation Date of Evaluation: 04/16/18 Time of Evaluation: 07:35 - Subjective Subjective: Teja Alfonso PGY2 IM Progress Note for Dr. Deras Patient was seen and examined at bedside. There were no acute overnight events. The patient states that her breathing has improved, as did the swelling in her legs. [facility] labs were reviewed. The patient will be possibly transferred to TCU versus home depending on PT eval. Objective - Vital Signs/Intake and Output Vital Signs (last 24 hours): Temp Pulse Resp BP Pulse Ox 97.9 F 60 20 127/69 95 04/16/18 08:16 04/16/18 08:16 04/16/18 08:16 04/16/18 08:16 04/16/18 08:16 Intake and Output: 04/16/18 04/16/18 06:59 18:59 Intake Total 360 Balance 360 - Medications Medications: Current Medications Diltiazem HCl (Cardizem Cd) 240 mg PO DAILY [facility] Last Admin: 04/15/18 11:13 Dose: 240 mg Furosemide (Lasix) 40 mg PO DAILY [facility] Potassium Chloride (K-Dur 20 Meq Er Tab) 20 meq PO TID NIKKI - Labs Labs: 04/12/18 17:16 04/15/18 07:00 PT 13.8 SECONDS (9.4-12.5) H 04/12/18 20:36 INR 1.21 04/12/18 20:36 APTT 24.3 Seconds (25.1-36.5) L 04/12/18 20:36 - Constitutional Appears: Well, Non-toxic, No Acute Distress - Head Exam Head Exam: NORMAL INSPECTION - Eye Exam Eye Exam: EOMI, Normal appearance, PERRL - ENT Exam ENT Exam: Mucous Membranes Moist - Respiratory Exam Respiratory Exam: Rales, NORMAL BREATHING PATTERN. absent: Wheezes, Respiratory Distress - Cardiovascular Exam Cardiovascular Exam: RRR, +S1, +S2 - GI/Abdominal Exam GI & Abdominal Exam: Soft, Normal Bowel Sounds. absent: Distended, Tenderness - Extremities Exam Extremities Exam: Full ROM. absent: Pedal Edema - Back Exam Back Exam: NORMAL INSPECTION - Neurological Exam Neurological Exam: Alert, Awake, Oriented x3 - Psychiatric Exam Psychiatric exam: Normal Mood - Skin Skin Exam: Normal Color Assessment and Plan - Assessment and Plan (Free Text) Assessment: 87-year-old female with a PMH of HTN, LBBB post pacemaker who presented to the ED with SLB and leg swelling, found to be in CHF exacerbation. Has improved with Lasix. - PT eval pending - Transfer to TCU if accepted - Continue Lasix - Continue Cardizem - Monitor electrolytes and replete as needed - Further recs per Dr. Deras Case was reviewed and discussed with attending, Dr. Augusta Alfonso <Jonathan Deras S - Last Filed: 04/16/18 21:40> Objective - Vital Signs/Intake and Output Vital Signs (last 24 hours): Temp Pulse Resp BP Pulse Ox 97.4 F L 63 20 149/76 94 L 04/16/18 15:51 04/16/18 15:51 04/16/18 15:51 04/16/18 15:51 04/16/18 15:51 - Labs Labs: 04/12/18 17:16 04/16/18 10:55 PT 13.8 SECONDS (9.4-12.5) H 04/12/18 20:36 INR 1.21 04/12/18 20:36 APTT 24.3 Seconds (25.1-36.5) L 04/12/18 20:36 Assessment and Plan - Assessment and Plan (Free Text) Assessment: Pt seen and examined. I have reviewed the note of the medical coding manager and agree with it. I have discussed the assessment and plan with the resident. I have reviewed the patient's labs and medications. Pt with acute CHF probably diastolic dysfunction. She is feeling better. She gal be discharged to TCU. She had LE edema that has improved. She has gait dysfunction. Her HTN is controlled.
[2018-04-16] MEDS: Potassium Chloride 20 mEq ER Tab PO SCH ×3 (10:47→17:01)
[2018-04-16 11:29] LABS: ALB/GLOB RATIO 1.2 (1.1-1.8); ALBUMIN 3.9 g/dL (3.0-4.8)
[2018-04-16] MEDS ORDERED: Potassium Chloride 10 mEq ER Tab PO SCH (12:15)
--- NOTE | 2018-04-16 12:17 | IP.NPCORE ---
Heart Failure Core Measure - Heart Failure Left Ventricular Function to be assessed after discharge: No CATHERINE Inhibitor Prescribed: No Contraindication/Reason for not providing: n/a Beta-Angel Prescribed: None Contraindication/Reason for not providing: n/a Angiotensin II Receptor Angel Prescribed: No Contraindication/Reason for not providing: n/a AnticoagulationTherapy for Atrial Fibrillation/Atrialflutter: No Contraindication/Reason for not providing: n/a Aldosterone Antagonist Prescribed: No Contraindication/Reason for not providing: n/a Hydralazine Nitrate Prescribed: No Contraindication/Reason for not providing: n/a Implantable Cardioverter Defibrillator Therapy: No Contraindication/Reason for not providing: n/a Cardiac Resynchronization Therapy Prescribed: No Contraindication/Reason for not providing: n/a - Follow up Will be discharged to: [facility] Facility Follow Up Date (must be within 7 days from discharge): 04/23/18 Follow Up Time: 09:00
[2018-04-16 15:52] VITALS: BP 149/76; PULSE 63; TEMP 97.4; O2SAT 94
--- NOTE | 2018-04-17 06:47 | CP.PCM.DIS ---
Provider - Provider Date of Admission: 04/12/18 18:22 Attending physician: Jonathan Deras MD Time Spent in preparation of Discharge (in minutes): 40 Diagnosis - Discharge Diagnosis (1) Congestive heart failure Status: Chronic (2) Left bundle branch block (LBBB) Status: Chronic Hospital Course - Lab Results Lab Results: Micro Results 04/12/18 17:16 Blood-Venous Blood Culture - Preliminary NO GROWTH AFTER 4 DAYS 04/12/18 17:00 Blood-Venous Blood Culture - Preliminary NO GROWTH AFTER 4 DAYS Most Recent Lab Values WBC 7.1 10^3/ul (4.5-11.0) D 04/12/18 17:16 RBC 4.06 10^6/uL (3.5-6.1) 04/12/18 17:16 Hgb 11.7 g/dL (12.0-16.0) L 04/12/18 17:16 Hct 36.3 % (36.0-48.0) 04/12/18 17:16 MCV 89.4 fl (80.0-105.0) 04/12/18 17:16 MCH 28.8 pg (25.0-35.0) 04/12/18 17:16 MCHC 32.2 g/dl (31.0-37.0) 04/12/18 17:16 RDW 15.3 % (11.5-14.5) H 04/12/18 17:16 Plt Count 256 10^3/uL (120.0-450.0) 04/12/18 17:16 MPV 9.6 fl (7.0-11.0) 04/12/18 17:16 Gran % 78.6 % (50.0-68.0) H 04/12/18 17:16 Lymph % (Auto) 13.9 % (22.0-35.0) L 04/12/18 17:16 Ceiba % (Auto) 4.8 % (1.0-6.0) 04/12/18 17:16 Eos % (Auto) 2.1 % (1.5-5.0) 04/12/18 17:16 Baso % (Auto) 0.6 % (0.0-3.0) 04/12/18 17:16 Gran # 5.60 (1.4-6.5) 04/12/18 17:16 Lymph # (Auto) 1.0 (1.2-3.4) L 04/12/18 17:16 Ceiba # (Auto) 0.3 (0.1-0.6) 04/12/18 17:16 Eos # (Auto) 0.2 (0.0-0.7) 04/12/18 17:16 Baso # (Auto) 0.04 K/mm3 (0.0-2.0) 04/12/18 17:16 PT 13.8 SECONDS (9.4-12.5) H 04/12/18 20:36 INR 1.21 04/12/18 20:36 APTT 24.3 Seconds (25.1-36.5) L 04/12/18 20:36 pO2 57 mm/Hg (30-55) H 04/12/18 17:16 VBG pH 7.34 (7.32-7.43) 04/12/18 17:16 VBG pCO2 58.0 (40-60) 04/12/18 17:16 VBG HCO3 31.3 mmol/l (21-28) H 04/12/18 17:16 VBG Total CO2 33.1 mmol.L (22-28) H 04/12/18 17:16 VBG O2 Sat (Calc) 91.8 % (40-65) H 04/12/18 17:16 VBG Base Excess 3.9 mmol/L (0.0-2.0) H 04/12/18 17:16 VBG Potassium 6.8 mmol/L (3.6-5.2) H* 04/12/18 17:16 Sodium 132.0 mmol/L (132-148) 04/12/18 17:16 Chloride 98.0 mmol/L (98-107) 04/12/18 17:16 Glucose 94 mg/dl (65-105) 04/12/18 17:16 Lactate 1.5 mmol/L (0.7-2.1) 04/12/18 17:16 FiO2 21.0 % 04/12/18 17:16 Sodium 137 mmol/L (132-148) 04/16/18 10:55 Potassium 3.3 mmol/L (3.6-5.0) L 04/16/18 10:55 Chloride 90 mmol/L (98-107) L 04/16/18 10:55 Carbon Dioxide 40 mmol/L (21-33) H D 04/16/18 10:55 Anion Gap 11 (10-20) 04/16/18 10:55 BUN 33 mg/dL (7-21) H 04/16/18 10:55 Creatinine 1.3 mg/dl (0.7-1.2) H 04/16/18 10:55 Est GFR ( Amer) 47 04/16/18 10:55 Est GFR (Non-Af Amer) 39 04/16/18 10:55 Random Glucose 159 mg/dL (70-110) H 04/16/18 10:55 Calcium 9.0 mg/dL (8.4-10.5) 04/16/18 10:55 Magnesium 2.0 mg/dL (1.7-2.2) 04/12/18 17:16 Total Bilirubin 0.5 mg/dL (0.2-1.3) 04/16/18 10:55 AST 25 U/L (14-36) 04/16/18 10:55 ALT 30 U/L (7-56) 04/16/18 10:55 Alkaline Phosphatase 59 U/L (38-126) 04/16/18 10:55 Lactate Dehydrogenase 593 U/L (333-699) 04/12/18 17:16 Total Creatine Kinase 98 U/L (35-230) 04/12/18 17:16 Troponin I < 0.01 ng/mL 04/13/18 10:00 NT-Pro-B Natriuret Pep 1980 pg/mL (0-450) H 04/12/18 17:16 Total Protein 7.1 g/dL (5.8-8.3) 04/16/18 10:55 Albumin 3.9 g/dL (3.0-4.8) 04/16/18 10:55 Globulin 3.2 gm/dL 04/16/18 10:55 Albumin/Globulin Ratio 1.2 (1.1-1.8) 04/16/18 10:55 Venous Blood Potassium 6.8 mmol/L (3.6-5.2) H* 04/12/18 17:16 Urine Color Yellow (YELLOW) 04/12/18 22:34 Urine Appearance Clear (CLEAR) 04/12/18 22:34 Urine pH 5.5 (4.7-8.0) 04/12/18 22:[address] 1.010 (1.005-1.035) 04/12/18 22:34 Urine Protein Negative mg/dL (<30 mg/dL) 04/12/18 22:34 Urine Glucose (UA) Negative mg/dL (NEGATIVE) 04/12/18 22:34 Urine Ketones Negative mg/dL (NEGATIVE) 04/12/18 22:34 Urine Blood Negative (NEGATIVE) 04/12/18 22:34 Urine Nitrate Negative (NEGATIVE) 04/12/18 22:34 Urine Bilirubin Negative (NEGATIVE) 04/12/18 22:34 Urine Urobilinogen 0.2 E.U./dL (<1 E.U./dL) 04/12/18 22:34 Ur Leukocyte Esterase Negative Kat/uL (NEGATIVE) 04/12/18 22:34 - Hospital Course Hospital Course: Ms. Scott is an 87-year-old female with a PMH of LBBB with pacemaker, HTN who was admitted for CHF exacerbation. The patient's symptoms improved with Lasix. She was evaluated by physical therapy, and recommendations were made for TCU as the patient had unsteady gait and SaO2 dropped to 84% on room air with exertion. The patient is transferred to TCU for further therapy, and on morning of discharge, she states that her breathing and the swelling in her legs have improved. Discharge Exam - Head Exam Head Exam: ATRAUMATIC, NORMAL INSPECTION - Eye Exam Eye Exam: EOMI, Normal appearance, PERRL - ENT Exam ENT Exam: Mucous Membranes Moist - Respiratory Exam Respiratory Exam: NORMAL BREATHING PATTERN. absent: Rales, Rhonchi, Wheezes, Respiratory Distress - Cardiovascular Exam Cardiovascular Exam: RRR, +S1, +S2 - GI/Abdominal Exam GI & Abdominal Exam: Soft. absent: Distended, Tenderness - Extremities Exam Extremities exam: full ROM, pedal pulses present Additional comments: no pedal edema - Back Exam Back exam: NORMAL INSPECTION - Neurological Exam Neurological exam: Alert, CN II-XII Intact, Oriented x3 - Psychiatric Exam Psychiatric exam: Normal Mood - Skin Skin Exam: Normal Color Discharge Plan - Follow Up Plan Condition: STABLE Disposition: REHAB FACILITY/REHAB UNIT Instructions: Heart Failure, Adult (DC), Heart Failure (DC), Heart Failure (GEN), Pacemaker (DC), Pacemaker (GEN), Pulmonary Edema (DC), Pulmonary Edema (GEN), Ascites (DC), Ascites (GEN) Additional Instructions: CONTINUE CURRENT TREATMENT WHILE IN SUBACUTE REHAB. Referrals: Rajesh Grider MD [Family Provider] -
== END 2018-04-16 17:20 | DRG 292 ==
LOC: ED 16:23 → ERH 18:22 → 3RSO 21:29
PROVIDERS: ADMIT Internal Medicine Nephrology; ATTEND Internal Medicine Nephrology
DX: I11.0 Hypertensive heart disease with heart failure (principal); Z68.41 Body mass index [BMI] 40.0-44.9, adult; Z95.0 Presence of cardiac pacemaker; I50.9 Heart failure, unspecified; R06.02 Shortness of breath; R60.0 Localized edema; I44.7 Left bundle-branch block, unspecified; Z85.038 Personal history of other malignant neoplasm of large intestine; I50.33 Acute on chronic diastolic (congestive) heart failure; R09.02 Hypoxemia; E87.6 Hypokalemia; D64.9 Anemia, unspecified; E03.9 Hypothyroidism, unspecified; E66.01 Morbid (severe) obesity due to excess calories; Z90.49 Acquired absence of other specified parts of digestive tract

== ENCOUNTER 2018-04-16 17:20 | Inpatient (IN) | payer OTHER, BC ==
[2018-04-16 18:43] VITALS: BMI 45.1
--- NOTE | 2018-04-17 06:54 | CP.PCM.HP ---
<Teja Alfonso - Last Filed: 04/17/18 16:40> History of Present Illness - History of Present Illness History of Present Illness: Teja Alfonso PGY2 IM H&P Note for Dr. Deras Ms. Scott is an 87-year-old female with a PMH of LBBB with pacemaker, HTN who was admitted to [facility] [place]F exacerbation. The patient's symptoms improved with IV Lasix, and she requested to be switched to PO due to pain in her IV access. She was transferred to TCU after stabilization of her symptoms and marked improvement for further strengthening and evaluation of her breathing as she was noted to desat upon exertion. She is feeling better overall, and is ready to start rehab. Patient denies chest pain, fever, chills, diaphoresis, headache, dizziness, abd pain, n/v, urinary symptoms. 12 point ROS was reviewed and is otherwise unremarkable. 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 Present on Admission - Present on Admission Any Indicators Present on Admission: No Review of Systems - Review of Systems All systems: reviewed and no additional remarkable complaints except (as per HPI) Past Patient History - Infectious Disease Hx of Infectious Diseases: None - Past Medical History & Family History Past Medical History?: Yes Past Family History: Reviewed and not pertinent - Past Social History Smoking Status: Never Smoked Alcohol: None Drugs: Denies - CARDIAC Hx Cardiac Disorders: Yes (LBBB w/ pacemaker) Hx Congestive Heart Failure: Yes Hx Hypertension: Yes Hx Pacemaker: Yes Hx Peripheral Edema: Yes - PULMONARY Hx Respiratory Disorders: No - NEUROLOGICAL Hx Neurological Disorder: No - HEENT Hx HEENT Problems: No - RENAL Hx Chronic Kidney Disease: No - ENDOCRINE/METABOLIC Hx Endocrine Disorders: No - HEMATOLOGICAL/ONCOLOGICAL Hx Cancer: Yes (Colon) Hx Chemotherapy: No - INTEGUMENTARY Hx Dermatological Problems: No - MUSCULOSKELETAL/RHEUMATOLOGICAL Hx Falls: No - GASTROINTESTINAL Hx Gastrointestinal Disorders: No - GENITOURINARY/GYNECOLOGICAL Hx Reproductive Disorders: No - PSYCHIATRIC Hx Psychophysiologic Disorder: No - SURGICAL HISTORY Hx Appendectomy: Yes Other/Comment: Colon Resection, tonsillectomy - ANESTHESIA Hx Anesthesia Reactions: No Hx Malignant Hyperthermia: No Meds Allergies/Adverse Reactions: Allergies Allergy/AdvReac Type Severity Reaction Status Date / Time No Known Allergies Allergy Verified 04/12/18 16:25 Physical Exam - Constitutional Appears: Well, Non-toxic, No Acute Distress - Head Exam Head Exam: NORMAL INSPECTION - Eye Exam Eye Exam: EOMI, Normal appearance, PERRL - ENT Exam ENT Exam: Mucous Membranes Moist - Neck Exam Neck exam: Positive for: Normal Inspection - Respiratory Exam Respiratory Exam: NORMAL BREATHING PATTERN. absent: Rales, Rhonchi, Wheezes - Cardiovascular Exam Cardiovascular Exam: RRR, +S1, +S2 - GI/Abdominal Exam GI & Abdominal Exam: Soft. absent: Distended, Tenderness - Extremities Exam Extremities exam: Positive for: full ROM, pedal pulses present. Negative for: pedal edema - Back Exam Back exam: NORMAL INSPECTION - Neurological Exam Neurological exam: Alert, CN II-XII Intact, Oriented x3 - Psychiatric Exam Psychiatric exam: Normal Mood - Skin Skin Exam: Warm Results - Vital Signs Recent Vital Signs: Last Vital Signs Temp Pulse Resp BP 138/67 04/17/18 05:26 Pulse Ox Assessment & Plan - Assessment and Plan (Free Text) Assessment: 87-year-old female with a PMH of HTN, LBBB post pacemaker who presented to the ED with SLB and leg swelling, found to be in CHF exacerbation. Improving with Lasix. Currently in TCU For further strengthening and exercise. - continue rehab for deconditioning and low O2 sat - Continue Lasix PO - Continue Cardizem - Further recs per Dr. Deras Case was reviewed and discussed with attending, Dr. Augusta Alfonso <Jonathan Deras S - Last Filed: 04/18/18 18:40> Results - Vital Signs Recent Vital Signs: Last Vital Signs Temp 97.7 F 04/18/18 11:25 Pulse 65 04/18/18 11:25 Resp 18 04/18/18 11:25 BP 141/63 04/18/18 11:25 Pulse Ox 93 L 04/18/18 11:25 - Labs Result Diagrams: 04/18/18 11:50 Labs: Laboratory Results - last 24 hr 04/18/18 04/18/18 11:08 11:50 Sodium 137 Potassium 3.7 Chloride 88 L Carbon Dioxide 37 H Anion Gap 16 BUN 35 H Creatinine 1.1 Est GFR ( Amer) 57 Est GFR (Non-Af Amer) 47 POC Glucose (mg/dL) 119 H Random Glucose 110 Calcium 9.7 Assessment & Plan - Assessment and Plan (Free Text) Assessment: Pt seen and examined. I have reviewed the note of the phlebotomist medical lab assistant and agree with it. I have discussed the assessment and plan with the resident. I have r eviewed the patient's labs and medications. Pt on TCU for rehab. She will continue with Lasix. BP is controlled. No pain. Eating well.
[2018-04-17] MEDS: Potassium Chloride 10 mEq ER Tab PO SCH (08:00)
[2018-04-17] MEDS: Potassium Chloride 20 mEq ER Tab PO SCH ×3 (09:45→17:31)
[2018-04-17] MEDS: diltiaZEM 240 mg/24 Hours CD Cap PO SCH (09:57)
[2018-04-18] MEDS: Potassium Chloride 20 mEq ER Tab PO SCH ×3 (08:12→18:01)
[2018-04-18] MEDS: Potassium Chloride 10 mEq ER Tab PO SCH (08:15)
--- NOTE | 2018-04-18 09:49 | CP.PCM.PN ---
Subjective - Date & Time of Evaluation Date of Evaluation: 04/18/18 Time of Evaluation: 08:46 - Subjective Subjective: Teja Alfonso PGY2 IM Progress Note Patient was seen and examined at bedside in TCU. The patient is breathing better and was participating in rehab yesterday and tolerated it well. There is extra swelling in her legs today but she is comfortable and denies any leg pain, chest pain, shortness of breath, fevers/chills, nausea/vomiting. Objective - Vital Signs/Intake and Output Vital Signs (last 24 hours): Temp Pulse Resp BP Pulse Ox 97.3 F L 72 20 127/74 98 04/18/18 06:00 04/18/18 06:00 04/18/18 06:00 04/18/18 06:00 04/18/18 06:00 Intake and Output: 04/18/18 04/18/18 06:59 18:59 Intake Total 360 Balance 360 - Medications Medications: Current Medications Diltiazem HCl (Cardizem Cd) 240 mg PO DAILY [facility]; Protocol Last Admin: 04/17/18 09:57 Dose: 240 mg Furosemide (Lasix) 40 mg PO 0600 [facility]; Protocol Last Admin: 04/18/18 05:43 Dose: 40 mg Potassium Chloride (K-Dur 20 Meq Er Tab) 20 meq PO TID [facility]; Protocol Last Admin: 04/17/18 17:31 Dose: 20 meq Potassium Chloride (Klor-Con 10) 10 meq PO 0800 [facility]; Protocol Last Admin: 04/17/18 08:00 Dose: 10 meq - Constitutional Appears: Non-toxic, No Acute Distress - Head Exam Head Exam: NORMAL INSPECTION - Eye Exam Eye Exam: Normal appearance - ENT Exam ENT Exam: Normal Exam - Neck Exam Neck Exam: Normal Inspection - Respiratory Exam Respiratory Exam: Rales (mild bibasilar). absent: Wheezes, Respiratory Distress - Cardiovascular Exam Cardiovascular Exam: RRR, +S1, +S2 - GI/Abdominal Exam GI & Abdominal Exam: Soft. absent: Distended, Tenderness - Extremities Exam Extremities Exam: Full ROM, Pedal Edema (1+ firm ). absent: Tenderness - Back Exam Back Exam: NORMAL INSPECTION - Neurological Exam Neurological Exam: Alert, Awake, Oriented x3 - Psychiatric Exam Psychiatric exam: Normal Mood - Skin Skin Exam: Dry, Warm Assessment and Plan - Assessment and Plan (Free Text) Assessment: 87-year-old female with a PMH of HTN, LBBB post pacemaker who presented to the ED with SLB and leg swelling, found to be in CHF exacerbation. Improving with Lasix. Currently in TCU for further strengthening and exercise. There is noted to be more swelling in legs today - continue rehab for deconditioning and low O2 sat - will administer extra Lasix dose - Continue Lasix 40mg PO daily - Continue Cardizem - Further recs per Dr. Flores Case was reviewed and discussed with attending, Dr. Flores (covering for [facility]) Teja Alfonso PGY2
[2018-04-18] MEDS: diltiaZEM 240 mg/24 Hours CD Cap PO SCH (11:00)
[2018-04-18 12:30] LABS: CALCIUM 9.7 mg/dL (8.4-10.5)
--- NOTE | 2018-04-19 08:12 | PN ---
DATE: 04/18/2018 This is an addendum to the progress note written by the resident. Notes reviewed. Case discussed with the resident. The patient was seen in the gym. Complained of bilateral leg swelling. She complained of shortness of breath also. MAR reviewed. Her today's blood work shows sodium of 137, potassium 3.7, chloride 88, CO2 of 37, BUN 35, creatinine 1.1, blood sugar of 119. Her MAR shows she is on Cardizem CD. She is on potassium 20 mEq 3 times a day and she is on Lasix. We will request for supportive stocking and keep the legs elevated while she is sitting in the chair or in the bed. There is no calf tenderness. I will order for DVT prophylaxis. Corina Flores MD
[2018-04-19] MEDS: diltiaZEM 240 mg/24 Hours CD Cap PO SCH (10:53)
[2018-04-19] MEDS: Potassium Chloride 20 mEq ER Tab PO SCH ×3 (10:54→17:21)
[2018-04-20] MEDS: Potassium Chloride 20 mEq ER Tab PO SCH ×3 (09:20→17:13)
[2018-04-20] MEDS: diltiaZEM 240 mg/24 Hours CD Cap PO SCH (09:20)
--- NOTE | 2018-04-20 10:11 | CP.PCM.PN ---
<NatyTeja - Last Filed: 04/20/18 11:15> Subjective - Date & Time of Evaluation Date of Evaluation: 04/20/18 Time of Evaluation: 07:10 - Subjective Subjective: Teja Alfonso PGY2 IM Progress Note for Dr. Deras Patient was seen and examined at bedside in TCU. The patient states that she is doing much better and that she has been participating fully in the rehab and tolerating it well. She states that her breathing is much improved and so has the swelling in her legs. She denies any chest pain, shortness of breath, n/v/d, constipation and she is tolerating her diet. She is eager to continue rehab for conditioning and agrees for full TCU stay till Monday. Nursing and PT notes were reviewed. Objective - Vital Signs/Intake and Output Vital Signs (last 24 hours): Temp Pulse Resp BP Pulse Ox 97.8 F 76 20 155/79 H 93 L 04/20/18 09:59 04/20/18 09:59 04/20/18 09:59 04/20/18 09:59 04/20/18 09:59 - Medications Medications: Current Medications Diltiazem HCl (Cardizem Cd) 240 mg PO DAILY [facility]; Protocol Last Admin: 04/20/18 09:20 Dose: 240 mg Furosemide (Lasix) 40 mg PO 0600 [facility]; Protocol Last Admin: 04/20/18 06:07 Dose: 40 mg Potassium Chloride (K-Dur 20 Meq Er Tab) 20 meq PO TID [facility]; Protocol Last Admin: 04/20/18 09:20 Dose: 20 meq - Labs Labs: 04/18/18 11:50 - Additional Findings Additional findings: - Constitutional Appears: Non-toxic, No Acute Distress - Head Exam Head Exam: NORMAL INSPECTION - Eye Exam Eye Exam: Normal appearance - ENT Exam ENT Exam: Normal Exam - Neck Exam Neck Exam: Normal Inspection - Respiratory Exam Respiratory Exam: Clear To Auscultation. absent: Wheezes, Respiratory Distress, Rales - Cardiovascular Exam Cardiovascular Exam: RRR, +S1, +S2 - GI/Abdominal Exam GI & Abdominal Exam: Soft. absent: Distended, Tenderness - Extremities Exam Extremities Exam: Full ROM. absent: Tenderness, Pedal Edema - Back Exam Back Exam: NORMAL INSPECTION - Neurological Exam Neurological Exam: Alert, Awake, Oriented x3 - Psychiatric Exam Psychiatric exam: Normal Mood - Skin Skin Exam: Dry, Warm Assessment and Plan - Assessment and Plan (Free Text) Assessment: 87-year-old female with a PMH of HTN, LBBB post pacemaker who presented to the ED with SLB and leg swelling, found to be in CHF exacerbation. Currently in TCU for further strengthening and exercise. The patient's symptoms have much improved with diuresis. HTN also stable. - continue rehab for deconditioning - Continue Lasix 40mg PO daily; patient will be discharged with script for Lasix 40mg PO daily x7 day - Continue Cardizem - Further recs per Dr. Deras Case was reviewed and discussed with attending, Dr. Deras) Teja Alfonso PGY2 <Jonathan Deras S - Last Filed: 04/21/18 12:12> Subjective - Subjective Subjective: Pt seen and examined. I have reviewed the note of the medical insurance coder and agree with it. I have discussed the assessment and plan with the resident. I have reviewed the patient's labs and medications.Pt doing well with PT. She has les LE edema. She has CHF due to systolic dysfunction chronic. HTN controlled. Objective - Vital Signs/Intake and Output Vital Signs (last 24 hours): Temp Pulse Resp BP Pulse Ox 97.8 F 80 20 156/86 H 93 L 04/21/18 06:00 04/21/18 09:40 04/21/18 06:00 04/21/18 09:40 04/21/18 06:00 - Medications Medications: Current Medications Diltiazem HCl (Cardizem Cd) 240 mg PO DAILY [facility]; Protocol Last Admin: 04/21/18 09:40 Dose: 240 mg Furosemide (Lasix) 40 mg PO 0600 [facility]; Protocol Last Admin: 04/21/18 05:37 Dose: 40 mg Potassium Chloride (K-Dur 20 Meq Er Tab) 20 meq PO TID [facility]; Protocol Last Admin: 04/21/18 09:40 Dose: 20 meq - Labs Labs: 04/18/18 11:50
[2018-04-21] MEDS: diltiaZEM 240 mg/24 Hours CD Cap PO SCH (09:40)
[2018-04-21] MEDS: Potassium Chloride 20 mEq ER Tab PO SCH ×3 (09:40→17:51)
[2018-04-22] MEDS: Potassium Chloride 20 mEq ER Tab PO SCH ×3 (09:46→17:05)
[2018-04-22] MEDS: diltiaZEM 240 mg/24 Hours CD Cap PO SCH (09:46)
[2018-04-22 20:24] VITALS: TEMP 98.4
[2018-04-23] MEDS: diltiaZEM 240 mg/24 Hours CD Cap PO SCH (10:22)
[2018-04-23] MEDS: Potassium Chloride 20 mEq ER Tab PO SCH ×2 (10:22→14:31)
--- NOTE | 2018-04-23 13:16 | CP.PCM.DIS ---
<Teja Alfonso - Last Filed: 04/23/18 17:41> Provider - Provider Date of Admission: 04/16/18 17:20 Attending physician: Jonathan Deras MD Time Spent in preparation of Discharge (in minutes): 35 Diagnosis - Discharge Diagnosis (1) Congestive heart failure Status: Chronic Hospital Course - Lab Results Lab Results: Most Recent Lab Values Sodium 137 mmol/L (132-148) 04/18/18 11:50 Potassium 3.7 mmol/L (3.6-5.0) 04/18/18 11:50 Chloride 88 mmol/L (98-107) L 04/18/18 11:50 Carbon Dioxide 37 mmol/L (21-33) H 04/18/18 11:50 Anion Gap 16 (10-20) 04/18/18 11:50 BUN 35 mg/dL (7-21) H 04/18/18 11:50 Creatinine 1.1 mg/dl (0.7-1.2) 04/18/18 11:50 Est GFR ( Amer) 57 04/18/18 11:50 Est GFR (Non-Af Amer) 47 04/18/18 11:50 POC Glucose (mg/dL) 119 mg/dL (65-110) H 04/18/18 11:08 Random Glucose 110 mg/dL (70-110) 04/18/18 11:50 Calcium 9.7 mg/dL (8.4-10.5) 04/18/18 11:50 - Hospital Course Hospital Course: 87-year-old female with a PMH of LBBB with pacemaker, HTN who was admitted to TCU for CHF exacerbation and for further strengthening and evaluation of her breathing as she was noted to desat upon exertion while on medical floor. The patient is improved significantly, and both her breathing and leg swelling have improved. She participated in rehab and continued to improve. She tolerated her diet and she was feeling better overall. On morning of discharge, the patient denies chest pain, fever, chills, diaphoresis, headache, dizziness, abd pain, n/v, urinary symptoms. Scripts were provided for Lasix 40mg PO daily and Potassium supplementation. She was also provided a work note. She has a follow- up appointment with Dr. Grider on Monday and Dr. Bolton on Monday. Discharge Exam - Head Exam Head Exam: NORMAL INSPECTION - Eye Exam Eye Exam: EOMI, Normal appearance, PERRL - ENT Exam ENT Exam: Mucous Membranes Moist, Normal Exam - Neck Exam Neck exam: Full Rom, Normal Inspection - Respiratory Exam Respiratory Exam: Clear to PA & Lateral, NORMAL BREATHING PATTERN. absent: Rales, Rhonchi, Wheezes, Respiratory Distress - Cardiovascular Exam Cardiovascular Exam: RRR, +S1, +S2 - GI/Abdominal Exam GI & Abdominal Exam: Normal Bowel Sounds, Soft. absent: Distended, Tenderness - Extremities Exam Extremities exam: full ROM, pedal pulses present Additional comments: no pedal edema noted - Back Exam Back exam: FULL ROM, NORMAL INSPECTION - Neurological Exam Neurological exam: Alert, CN II-XII Intact, Oriented x3 - Psychiatric Exam Psychiatric exam: Normal Mood - Skin Skin Exam: Normal Color, Warm Discharge Plan - Discharge Medications Prescriptions: RX: Potassium Chloride [K-Dur 20 mEq ER Tab] 20 meq PO TID #7 tab RX: Furosemide [Lasix] 40 mg PO DAILY #7 tab - Follow Up Plan Condition: GOOD Disposition: HOME/ ROUTINE Instructions: Swelling, Furosemide, Heart Failure (DC), Pacemaker (DC) Additional Instructions: - please continue Lasix home dose - please continue your prior home meds - follow-up with your PMD and staff research associate within 2 weeks <Jonathan Deras - Last Filed: 04/23/18 20:36> Provider - Provider Date of Admission: 04/16/18 17:20 Attending physician: Jonathan Deras MD Hospital Course - Lab Results Lab Results: Most Recent Lab Values Sodium 137 mmol/L (132-148) 04/18/18 11:50 Potassium 3.7 mmol/L (3.6-5.0) 04/18/18 11:50 Chloride 88 mmol/L (98-107) L 04/18/18 11:50 Carbon Dioxide 37 mmol/L (21-33) H 04/18/18 11:50 Anion Gap 16 (10-20) 04/18/18 11:50 BUN 35 mg/dL (7-21) H 04/18/18 11:50 Creatinine 1.1 mg/dl (0.7-1.2) 04/18/18 11:50 Est GFR ( Amer) 57 04/18/18 11:50 Est GFR (Non-Af Amer) 47 04/18/18 11:50 POC Glucose (mg/dL) 119 mg/dL (65-110) H 04/18/18 11:08 Random Glucose 110 mg/dL (70-110) 04/18/18 11:50 Calcium 9.7 mg/dL (8.4-10.5) 04/18/18 11:50 - Hospital Course Hospital Course: Pt seen and examined by me. I have reviewed the note by the medical photographer. The case was discussed and reviewed with the resident. I reviewed the medications and labs. Pt with acute CHF due to diastolic dysfunction. She improved with Lasix. She will continue with Lasix as outpt. She is ambulating better.Pain is controlled. D/C home. F/U Dr Grider.
[2018-04-23 17:36] VITALS: BP 156/65; PULSE 67; RESP 14; O2SAT 95
== END 2018-04-23 19:00 | disposition home or self-care (01) | DRG 293 ==
LOC: TRCU 17:20
PROVIDERS: ADMIT Internal Medicine Nephrology; ATTEND Internal Medicine Nephrology
PROC: F07Z9FZ Gait Training/Functional Ambulation Treatment using Assistive, Adaptive, Supportive or Protective Equipment (ICD-10-PCS; principal; 2018-04-17)
PROC: F08Z2ZZ Grooming/Personal Hygiene Treatment (ICD-10-PCS; 2018-04-17)
PROC: F08Z1ZZ Dressing Techniques Treatment (ICD-10-PCS; 2018-04-17)
PROC: F08Z0ZZ Bathing/Showering Techniques Treatment (ICD-10-PCS; 2018-04-17)
DX: I11.0 Hypertensive heart disease with heart failure (principal); I50.43 Acute on chronic combined systolic (congestive) and diastolic (congestive) heart failure; Z85.038 Personal history of other malignant neoplasm of large intestine; Z90.49 Acquired absence of other specified parts of digestive tract; Z95.0 Presence of cardiac pacemaker

== ENCOUNTER 2018-06-27 15:55 | Outpatient (CLI) | payer MEDICARE, BC | END 2018-06-27 15:56 | disposition home or self-care (01) | LOC: RAD 15:55 ==

== ENCOUNTER 2018-08-28 18:31 | Inpatient (IN) | payer MEDICARE, BC ==
[2018-08-28 18:36] VITALS: BMI 41.8
--- NOTE | 2018-08-28 19:08 | ED PDOC ---
Arrival/HPI - General Chief Complaint: Shortness Of Breath Time Seen by Provider: 08/28/18 18:38 Historian: Patient - History of Present Illness Narrative History of Present Illness (Text): 08/28/18 19:01 88 year old female with a Past medical history of congestive heart failure, pacemaker and hypertension presents to the Emergency department complaining of shortness of breath x last night. Patient reports that she was referred to the Emergency department after she was seen at [facility] and was informed of a CXR positive for congestion. She also reports that her PMD took her off of lasix and put her on an unknown medication and informs experiencing worsening SOB since then. Patient denies any chest pain, cough, fever, chills, nausea, vomiting, or any other complaints. Time/Duration: 24 hours Symptom Course: Unchanged Activities at Onset: Light Context: Home Past Medical History - Provider Review Nursing Documentation Reviewed: Yes - Infectious Disease Hx of Infectious Diseases: None - Reproductive Menopause: Yes - Cardiac Hx Cardiac Disorders: Yes (LBBB w/ pacemaker) Hx Congestive Heart Failure: Yes Hx Hypertension: Yes Hx Pacemaker: Yes Hx Peripheral Edema: Yes - Pulmonary Hx Respiratory Disorders: No - Neurological Hx Neurological Disorder: No - HEENT Hx HEENT Disorder: No - Renal Hx Renal Disorder: No - Endocrine/Metabolic Hx Endocrine Disorders: No - Hematological/Oncological Hx Cancer: Yes (Colon) - Integumentary Hx Dermatological Disorder: No - Musculoskeletal/Rheumatological Hx Gout: Yes - Gastrointestinal Hx Gastrointestinal Disorders: Yes Other/Comment: COLON CA - Genitourinary/Gynecological Hx Genitourinary Disorders: No - Psychiatric Hx Psychophysiologic Disorder: No Hx Substance Use: No - Surgical History Hx Appendectomy: Yes Other/Comment: Colon Resection, tonsillectomy - Anesthesia Hx Anesthesia Reactions: No Hx Malignant Hyperthermia: No - Suicidal Assessment Feels Threatened In Home Enviroment: No Family/Social History - Physician Review Nursing Documentation Reviewed: Yes Family/Social History: Unknown Family HX Smoking Status: Never Smoked Hx Alcohol Use: No Hx Substance Use: No Hx Substance Use Treatment: No Allergies/Home Meds Allergies/Adverse Reactions: Allergies No Known Allergies Allergy (Verified 04/12/18 16:25) Home Medications: Home Meds Medication Instructions Recorded Confirmed Chlorthalidone [Hygroton] 25 mg PO DAILY 08/28/18 08/28/18 Review of Systems - Physician Review All systems were reviewed & negative as marked: Yes - Review of Systems Constitutional: absent: Fevers Respiratory: SOB. absent: Cough Cardiovascular: absent: Chest Pain Gastrointestinal: absent: Nausea, Vomiting Musculoskeletal: absent: Back Pain, Neck Pain Neurological: absent: Headache, Dizziness Endocrine: absent: Diaphoresis Physical Exam Vital Signs Reviewed: Yes Appearance: Positive for: Well-Appearing, Non-Toxic, Comfortable Pain Distress: None Mental Status: Positive for: Alert and Oriented X 3 - Systems Exam Head: Present: Atraumatic, Normocephalic Pupils: Present: PERRL Extroacular Muscles: Present: EOMI Conjunctiva: Present: Normal Mouth: Present: Moist Mucous Membranes Neck: Present: Normal Range of Motion. No: JVD Respiratory/Chest: Present: Clear to Auscultation, Good Air Exchange. No: Respiratory Distress, Accessory Muscle Use Cardiovascular: Present: Regular Rate and Rhythm, Normal S1, S2. No: Murmurs Abdomen: No: Tenderness, Distention, Peritoneal Signs Back: Present: Normal Inspection Upper Extremity: Present: Normal Inspection. No: Cyanosis, Edema Lower Extremity: Present: Edema (pitting edema 3+) Neurological: Present: GCS=15, Speech Normal Skin: Present: Warm, Dry, Normal Color. No: Rashes Psychiatric: Present: Alert, Oriented x 3, Normal Insight, Normal Concentration Medical Decision Making ED Course and Treatment: 08/28/18 19:12 Impression: 88 year old female presents to the Emergency department complaining of shortness of breath x last night. Differential Diagnosis included but are not limited to: congestive heart failure exacerbation Plan: -- VBG -- EKG -- Labs -- Tylenol -- Reassess and disposition Prior Visits: Notes and results from previous visits were reviewed. Progress Notes: - Scribe Statement The provider has reviewed the documentation as recorded by the Juan Antonioibrenay Coppola, david with Tere. All medical record entries made by the Juan Antonioibrenay were at my direction and personally dictated by me. I have reviewed the chart and agree that the record accurately reflects my personal performance of the history, physical exam, medical decision making, and the department course for this patient. I have also personally directed, reviewed, and agree with the discharge instructions and disposition. Disposition/Present on Arrival - Present on Arrival History of DVT/PE: No History of Uncontrolled Diabetes: No Urinary Catheter: No History of Decub. Ulcer: No History Surgical Site Infection Following: None - Disposition Forms: [place] (Irish)
[2018-08-28 20:50] LABS: BASO # 0.08 K/mm3 (0.0-2.0); EOS # 0.2 (0.0-0.7); HEMOGLOBIN 11.3 g/dL (12.0-16.0); LYMPH % 13.1 % (22.0-35.0); MEAN CELL VOLUME 92.2 fl (80.0-105.0); MEAN CORPUSCULAR HEMOGLOBIN 29.4 pg (25.0-35.0); MEAN CORPUSCULAR HGB CONC 31.8 g/dl (31.0-37.0); MEAN PLATELET VOLUME 9.2 fl (7.0-11.0); MONO # 0.4 (0.1-0.6); MONO % 4.8 % (1.0-6.0); RBC 3.85 10^6/uL (3.5-6.1); RED CELL DISTRIBUTION WIDTH 18.6 % (11.5-14.5); WHITE BLOOD COUNT 7.9 10^3/uL (4.5-11.0)
[2018-08-28 20:57] LABS: VENOUS BLOOD GAS BASE EXCESS 5.6 mmol/L (0.0-2.0); VENOUS BLOOD GAS PO2 41 mm/Hg (30-55); VENOUS BLOOD PH 7.33 (7.32-7.43)
[2018-08-28 21:10] LABS: BLOOD UREA NITROGEN 33 mg/dL (7-21); CALCIUM 9.7 mg/dL (8.4-10.5); GFR NON-AFRICAN AMERICAN 52
[2018-08-28 21:22] LABS: B-TYPE NATRIURETIC PEPTIDE 1820 pg/mL (0-450)
[2018-08-28 21:50] LABS: TROPONIN I < 0.01 ng/mL
[2018-08-29 10:19] VITALS: RESP 20
[2018-08-29] MEDS: diltiaZEM 240 mg/24 Hours CD Cap PO SCH (11:14)
--- NOTE | 2018-08-29 12:35 | CP.PCM.HP ---
<Lilly Norman - Last Filed: 08/29/18 13:28> History of Present Illness - History of Present Illness History of Present Illness: Lilly Norman, PGY2, H&P for Dr Deras: CC: sob This is a 88 year old female with a PMH right sided diastolic heart failure, LBBB s/p pacemaker, hypertension, colon cancer s/p resection, is here for sob and lower extremity edema for past few days. Patient works as a hims clerk in pharmacy, and noticed increasing sob with exertion, walking. Patient then went to PMD Dr Grider's office yesterday afternoon, which was closed. She then went to urgent care center, where her CXR was positive for congestion. She was then sent to [facility] ED. Patient denies orthopnea, recent travel, using extra pillows at night to sleep, nausea, vomiting, fevers, chills, cough, neck pain, abdominal pain, diarrhea, urinary symptoms. Patient reports constipation for past 2-3 days, and states that she would like something for it. Patient states that her lasix was recently discontinued by her PMD, and she was instead started on chlorthalidone. In ED, patient was afebrile with stable vitals, BNP elevated 1820, CXR showed cardiomegaly, no vascular congestion. Given Lasix 40 mg IVx1. 12 point ROS obtained and negative, except as per HPI. PMH: hypertension , LBBB with pacemaker, colon cancer with resection PSH: colon cancer resection, appendectomy social history: denies smoking, alcohol use, illicit drug use, works as hims clerk in pharmacy meds: Cardizem, chlorthalidone allergy: nkda Present on Admission - Present on Admission Any Indicators Present on Admission: No History of DVT/PE: No History of Uncontrolled Diabetes: No Urinary Catheter: No Decubitus Ulcer Present: No Review of Systems - Review of Systems All systems: reviewed and no additional remarkable complaints except Review of Systems: as per HPI Past Patient History - Infectious Disease Hx of Infectious Diseases: None - Past Medical History & Family History Past Medical History?: Yes - Past Social History Smoking Status: Never Smoked - CARDIAC Hx Cardiac Disorders: Yes (LBBB w/ pacemaker) Hx Congestive Heart Failure: Yes Hx Hypertension: Yes Hx Pacemaker: Yes Hx Peripheral Edema: Yes - PULMONARY Hx Respiratory Disorders: No - NEUROLOGICAL Hx Neurological Disorder: No - HEENT Hx HEENT Problems: No - RENAL Hx Chronic Kidney Disease: No - ENDOCRINE/METABOLIC Hx Endocrine Disorders: No - HEMATOLOGICAL/ONCOLOGICAL Hx Cancer: Yes (Colon) - INTEGUMENTARY Hx Dermatological Problems: No - MUSCULOSKELETAL/RHEUMATOLOGICAL Hx Falls: No - GASTROINTESTINAL Hx Gastrointestinal Disorders: Yes Other/Comment: COLON CA - GENITOURINARY/GYNECOLOGICAL Hx Genitourinary Disorders: No - PSYCHIATRIC Hx Psychophysiologic Disorder: No Hx Substance Use: No - SURGICAL HISTORY Hx Appendectomy: Yes Other/Comment: Colon Resection, tonsillectomy - ANESTHESIA Hx Anesthesia Reactions: No Hx Malignant Hyperthermia: No Meds Allergies/Adverse Reactions: Allergies Allergy/AdvReac Type Severity Reaction Status Date / Time No Known Allergies Allergy Verified 04/12/18 16:25 Physical Exam - Constitutional Appears: Non-toxic, No Acute Distress - Head Exam Head Exam: ATRAUMATIC, NORMOCEPHALIC - Eye Exam Eye Exam: EOMI, PERRL. absent: Conjunctival injection, Nystagmus, Scleral icterus Pupil Exam: NORMAL ACCOMODATION, PERRL. absent: Irregular, Miosis, Mydriatic, Unequal - ENT Exam ENT Exam: Mucous Membranes Moist - Neck Exam Neck exam: Positive for: Full Rom - Respiratory Exam Respiratory Exam: Clear to Auscultation Bilateral, NORMAL BREATHING PATTERN. absent: Accessory Muscle Use, Rales, Rhonchi, Wheezes, Respiratory Distress, Stridor - Cardiovascular Exam Cardiovascular Exam: RRR, +S1, +S2. absent: Systolic Murmur - GI/Abdominal Exam GI & Abdominal Exam: Normal Bowel Sounds, Soft. absent: Distended, Firm, Organomegaly, Pulsatile Mass, Rebound, Rigid, Tenderness - Extremities Exam Extremities exam: Positive for: pedal edema (2+ pitting edema bilaterally). Negative for: calf tenderness - Back Exam Back exam: NORMAL INSPECTION - Neurological Exam Neurological exam: Alert, Oriented x3 - Psychiatric Exam Psychiatric exam: Normal Affect, Normal Mood - Skin Skin Exam: Dry, Normal Color, Warm Results - Vital Signs Recent Vital Signs: Last Vital Signs Temp 97.8 F 08/29/18 12:00 Pulse 69 08/29/18 12:00 Resp 20 08/29/18 12:00 BP 119/80 08/29/18 12:00 Pulse Ox 96 08/29/18 06:00 - Labs Result Diagrams: 08/28/18 20:47 08/28/18 20:47 Labs: Laboratory Results - last 24 hr 08/28/18 08/28/18 08/28/18 20:47 20:47 20:47 WBC 7.9 RBC 3.85 Hgb 11.3 L Hct 35.5 L MCV 92.2 MCH 29.4 MCHC 31.8 RDW 18.6 H Plt Count 225 MPV 9.2 Neut % (Auto) 79.1 H Lymph % (Auto) 13.1 L [place] % (Auto) 4.8 Eos % (Auto) 2.0 Baso % (Auto) 1.0 Lymph # (Auto) 1.0 L [place] # (Auto) 0.4 Eos # (Auto) 0.2 Baso # (Auto) 0.08 Absolute Neuts (auto) 6.25 pO2 41 VBG pH 7.33 VBG pCO2 63.0 H VBG HCO3 33.2 H VBG Total CO2 35.1 H VBG O2 Sat (Calc) 77.0 H VBG Base Excess 5.6 H VBG Potassium 4.3 Sodium 139.0 138 Chloride 102.0 98 Glucose 103 Lactate 1.1 FiO2 21.0 Potassium 4.2 Carbon Dioxide 32 Anion Gap 12 BUN 33 H Creatinine 1.0 Est GFR ( Amer) > 60 Est GFR (Non-Af Amer) 52 Random Glucose 97 Calcium 9.7 Magnesium 2.1 Lactate Dehydrogenase 575 Total Creatine Kinase 34 L Troponin I < 0.01 NT-Pro-B Natriuret Pep 1820 H Venous Blood Potassium 4.3 08/29/18 09:00 WBC RBC Hgb Hct MCV MCH MCHC RDW Plt Count MPV Neut % (Auto) Lymph % (Auto) [place] % (Auto) Eos % (Auto) Baso % (Auto) Lymph # (Auto) [place] # (Auto) Eos # (Auto) Baso # (Auto) Absolute Neuts (auto) pO2 VBG pH VBG pCO2 VBG HCO3 VBG Total CO2 VBG O2 Sat (Calc) VBG Base Excess VBG Potassium Sodium Chloride Glucose Lactate FiO2 Potassium Carbon Dioxide Anion Gap BUN Creatinine Est GFR ( Amer) Est GFR (Non-Af Amer) Random Glucose Calcium Magnesium Lactate Dehydrogenase Total Creatine Kinase Troponin I < 0.01 NT-Pro-B Natriuret Pep Venous Blood Potassium Assessment & Plan - Assessment and Plan (Free Text) Assessment: 1. Acute on chronic diastolic heart failure 2. Pulmonary HTN 3. Constipation 4. HTN 5. Heart Conduction disease, LBBB, s/p pacemaker 6. Colon cancer s/p resection Will start Lasix 40 mg IV daily, with strict I&Os and daily weights. Will start miralax for constipation, will monitor for bowel movements. Will continue with home Cardizem for HTN. Cardiology Dr Bolton is consulted, will follow up recs. Physical therapy evaluation will be obtained. Patient is on pepcid for GI prophylaxis. Patient is on a heart healthy, 2 gm sodium, 1.2 L fluid restricted diet. Case reviewed and discussed with Dr Deras. <Jonathan Deras S - Last Filed: 08/29/18 19:31> Results - Vital Signs Recent Vital Signs: Last Vital Signs Temp 97.4 F L 08/29/18 18:00 Pulse 75 08/29/18 18:00 Resp 20 08/29/18 18:00 BP 125/85 08/29/18 18:00 Pulse Ox 96 08/29/18 06:00 - Labs Result Diagrams: 08/28/18 20:47 08/28/18 20:47 Labs: Laboratory Results - last 24 hr 08/28/18 08/28/18 08/28/18 20:47 20:47 20:47 WBC 7.9 RBC 3.85 Hgb 11.3 L Hct 35.5 L MCV 92.2 MCH 29.4 MCHC 31.8 RDW 18.6 H Plt Count 225 MPV 9.2 Neut % (Auto) 79.1 H Lymph % (Auto) 13.1 L [place] % (Auto) 4.8 Eos % (Auto) 2.0 Baso % (Auto) 1.0 Lymph # (Auto) 1.0 L [place] # (Auto) 0.4 Eos # (Auto) 0.2 Baso # (Auto) 0.08 Absolute Neuts (auto) 6.25 pO2 41 VBG pH 7.33 VBG pCO2 63.0 H VBG HCO3 33.2 H VBG Total CO2 35.1 H VBG O2 Sat (Calc) 77.0 H VBG Base Excess 5.6 H VBG Potassium 4.3 Sodium 139.0 138 Chloride 102.0 98 Glucose 103 Lactate 1.1 FiO2 21.0 Potassium 4.2 Carbon Dioxide 32 Anion Gap 12 BUN 33 H Creatinine 1.0 Est GFR ( Amer) > 60 Est GFR (Non-Af Amer) 52 Random Glucose 97 Calcium 9.7 Magnesium 2.1 Lactate Dehydrogenase 575 Total Creatine Kinase 34 L Troponin I < 0.01 NT-Pro-B Natriuret Pep 1820 H Venous Blood Potassium 4.3 08/29/18 09:00 WBC RBC Hgb Hct MCV MCH MCHC RDW Plt Count MPV Neut % (Auto) Lymph % (Auto) [place] % (Auto) Eos % (Auto) Baso % (Auto) Lymph # (Auto) [place] # (Auto) Eos # (Auto) Baso # (Auto) Absolute Neuts (auto) pO2 VBG pH VBG pCO2 VBG HCO3 VBG Total CO2 VBG O2 Sat (Calc) VBG Base Excess VBG Potassium Sodium Chloride Glucose Lactate FiO2 Potassium Carbon Dioxide Anion Gap BUN Creatinine Est GFR ( Amer) Est GFR (Non-Af Amer) Random Glucose Calcium Magnesium Lactate Dehydrogenase Total Creatine Kinase Troponin I < 0.01 NT-Pro-B Natriuret Pep Venous Blood Potassium Assessment & Plan - Assessment and Plan (Free Text) Assessment: Pt seen and examined by me. I have reviewed the note of the medical psychotherapist and I agree with it. I have discussed the assessment and plan with the resident. I have reviewed the medications and the last labs.
--- NOTE | 2018-08-29 12:51 | CON ---
DATE OF CONSULTATION: 08/29/2018 REQUESTING PHYSICIAN: Dr. Deras. REASON FOR CONSULTATION: Dyspnea, leg edema. HISTORY: This is an 88-year-old woman, well-known to me with a history of diastolic heart failure and chronic lymphedema as well as conduction system disease, status post prior permanent pacemaker implant, admitted with complaints of worsening dyspnea and leg edema. She had recently been seen by Dr. Perez, who switched her from Lasix to chlorthalidone. Since that time she has had worsening leg edema. A similar problem occurred several months ago. She denies any chest pain. She was treated with IV Lasix in the emergency room and is feeling somewhat better. Her past history is notable for hypertension and chronic left bundle-branch block conduction system disease, status post permanent pacemaker implant. She also has a history of colon cancer, for which she underwent resection in the past. Her last echocardiogram revealed normal LV size and systolic function with a mild mitral and tricuspid regurgitation. MEDICATIONS: Her medications at home include diltiazem 240 mg daily and chlorthalidone 25 mg daily. ALLERGIES: NONE. SOCIAL HISTORY: She does not smoke or drink. 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 She lives at home with her daughter. FAMILY HISTORY: Family history is unremarkable. REVIEW OF SYSTEMS: Ten-point review of systems is otherwise noncontributory. PHYSICAL EXAMINATION: GENERAL: She is an obese, very elderly woman. VITAL SIGNS: Her blood pressure is 140/78 with a pulse of 90 with ventricular pacing, respirations are 16. She is afebrile. HEENT: Normocephalic, atraumatic. NECK: Supple. No JVD noted. CHEST: A few scattered rhonchi heard. HEART: PMI displaced laterally with soft systolic murmur at the lower left sternal border. ABDOMEN: Soft, obese, nontender with normoactive bowel sounds. EXTREMITIES: 1 to 2+ leg edema with chronic cellulitic changes noted. SKIN: Warm and dry. PSYCHIATRIC: Normal mood and affect. NEUROLOGICAL: Alert and oriented x3. No gross motor or sensory deficits appreciable. DIAGNOSTIC DATA: White count is 7.9, hemoglobin and hematocrit are 11.3 and 35.5 with a platelet count of 225,000. Venous blood gas showed a pH of 7.33, pCO2 of 63, pO2 of 41, potassium 4.2, BUN and creatinine are 33 and 1. Two sets of cardiac enzymes are negative. BNP was 1120. Electrocardiogram reveals a ventricular paced rhythm. Outside chest x-ray reveals mildly increased cardiac silhouette with fairly clear lung mariee and mild blunting of the costophrenic angles. IMPRESSION: 1. Mildly decompensated congestive heart failure, predominantly right-sided, diastolic, [id number], likely secondary to recent reduction and diuretic therapy. 2. Conduction system disease, status post permanent pacemaker implant. 3. Chronic obesity. 4. Rest of the problems as noted. RECOMMENDATIONS: At this time IV Lasix will be continued for today. This can be switched to oral administration in the morning. At this time, chronic loop diuretic therapy appears necessary to prevent any recurrence of fluid retention and chlorthalidone does not appear effective at this time. Thank you for this consultation. We will be happy to see as an outpatient as planned. Rom Bolton MD
--- NOTE | 2018-08-29 13:20 | RAD ---
Date of service: 08/29/2018 HISTORY: dyspnea COMPARISON: 08/28/2018 FINDINGS: LUNGS: No active pulmonary disease. PLEURA: Small bilateral pleural effusions CARDIOVASCULAR: No aortic atherosclerotic calcification present. Moderate cardiomegaly no pulmonary vascular congestion. OSSEOUS STRUCTURES: No significant abnormalities. VISUALIZED UPPER ABDOMEN: Normal. OTHER FINDINGS: Dual lead pacemaker IMPRESSION: Moderate cardiomegaly and small pleural effusions unchanged
--- NOTE | 2018-08-29 15:44 | CARD ---
APPROVED REPORT Date of service: 08/28/2018 EKG Measurement Heart [id number] <Conclusion> Electronic ventricular pacemaker
[2018-08-29] MEDS: POLYETHYLENE GLYCOL 3350 17 GM/Dose PACKET PO SCH (18:57)
--- NOTE | 2018-08-29 21:44 | HP ---
DATE OF EXAM: 08/29/2018 HISTORY OF PRESENT ILLNESS: The patient was seen and examined. I do agree with the note of the medical records supervisor. The patient has acute CHF secondary to diastolic dysfunction. She has a history of pulmonary hypertension. She had recently stopped her diuretic therapy. She has history of constipation. She is going to be on a heart-healthy diet. She is on Cardizem for her hypertension. She is going to be seen by Cardiology. We will continue the patient on IV furosemide. She is going to be on Miralax for her constipation. She is also on Pepcid for her GERD. She is on a heart-healthy diet. I will discontinue telemetry monitoring at this point. Her labs have been reviewed. She has 2 troponins that have been negative. Jonathan Deras MD
[2018-08-30 08:40] VITALS: TEMP 97.3
[2018-08-30] MEDS: POLYETHYLENE GLYCOL 3350 17 GM/Dose PACKET PO SCH ×2 (09:49→17:35)
[2018-08-30] MEDS: diltiaZEM 240 mg/24 Hours CD Cap PO SCH (09:49)
--- NOTE | 2018-08-30 10:03 | CP.PCM.PN ---
<Lilly Norman - Last Filed: 08/30/18 09:56> Subjective - Date & Time of Evaluation Date of Evaluation: 08/30/18 Time of Evaluation: 09:56 - Subjective Subjective: Lilly Norman, PGY2, Medicine Progress Note for Dr Deras: Patient seen and examined at bedside. No acute events overnight. Patient reports her shortness of breath has mildly improved with IV Lasix. However, reports persistent lower extremity edema. Denies fevers, chills, nausea, vomiting, abdominal pain, urinary symptoms. Objective - Vital Signs/Intake and Output Vital Signs (last 24 hours): Temp Pulse Resp BP Pulse Ox 97.3 F L 65 20 128/75 95 08/30/18 08:40 08/30/18 08:40 08/30/18 08:40 08/30/18 09:48 08/30/18 08:40 Intake and Output: 08/30/18 08/30/18 06:59 18:59 Intake Total 1180 Output Total 950 Balance 230 - Medications Medications: Current Medications Diltiazem HCl (Cardizem Cd) 240 mg PO DAILY [facility] Last Admin: 08/30/18 09:49 Dose: 240 mg Famotidine (Pepcid) 20 mg PO 1000,2200 [facility] Last Admin: 08/30/18 09:49 Dose: 20 mg Furosemide (Lasix) 40 mg IVP DAILY [facility] Last Admin: 08/30/18 09:48 Dose: 40 mg Polyethylene Glycol (Miralax) 17 gm PO BID [facility] Last Admin: 08/30/18 09:49 Dose: 17 gm - Labs Labs: 08/28/18 20:47 08/28/18 20:47 - Additional Findings Additional findings: - Constitutional Appears: Non-toxic, No Acute Distress - Head Exam Head Exam: ATRAUMATIC, NORMOCEPHALIC - Eye Exam Eye Exam: EOMI, PERRL. absent: Conjunctival injection, Nystagmus, Scleral icterus Pupil Exam: NORMAL ACCOMODATION, PERRL. absent: Irregular, Miosis, Mydriatic, Unequal - ENT Exam ENT Exam: Mucous Membranes Moist - Neck Exam Neck exam: Positive for: Full Rom - Respiratory Exam Respiratory Exam: Clear to Auscultation Bilateral, NORMAL BREATHING PATTERN. absent: Accessory Muscle Use, Rales, Rhonchi, Wheezes, Respiratory Distress, Stridor - Cardiovascular Exam Cardiovascular Exam: RRR, +S1, +S2. absent: Systolic Murmur - GI/Abdominal Exam GI & Abdominal Exam: Normal Bowel Sounds, Soft. absent: Distended, Firm, Organomegaly, Pulsatile Mass, Rebound, Rigid, Tenderness - Extremities Exam Extremities exam: Positive for: pedal edema (2+ pitting edema bilaterally). Negative for: calf tenderness - Back Exam Back exam: NORMAL INSPECTION - Neurological Exam Neurological exam: Alert, Oriented x3 - Psychiatric Exam Psychiatric exam: Normal Affect, Normal Mood - Skin Skin Exam: Dry, Normal Color, Warm Assessment and Plan - Assessment and Plan (Free Text) Assessment: 1. Acute on chronic diastolic heart failure 2. Pulmonary HTN 3. Constipation 4. HTN 5. Heart Conduction disease, LBBB, s/p pacemaker 6. Colon cancer s/p resection Will continue with Lasix 40 mg IV daily, with strict I&Os and daily weights. Pt's weight is 4 lbs more than yesterday, with positive fluid balance of 230 cc. Will cut down fluid restriction to 1000 cc from 1200 cc. Continue with miralax for constipation. Will continue with home Cardizem for HTN. Cardiology Dr Bolton is consulted, appreciate recs, will discharge patient home on PO lasix, not chlorthalidone. Physical therapy evaluation recommends home. Patient is on pepcid for GI prophylaxis. Patient is on a heart healthy, 2 gm sodium, 1 L fluid restricted diet. Case reviewed and discussed with Dr Deras. <Jonathan Deras S - Last Filed: 08/30/18 20:16> Objective - Vital Signs/Intake and Output Vital Signs (last 24 hours): Temp Pulse Resp BP Pulse Ox 97.3 F L 65 20 128/75 95 08/30/18 08:40 08/30/18 08:40 08/30/18 08:40 08/30/18 09:48 08/30/18 08:40 Intake and Output: 08/30/18 08/31/18 18:59 06:59 Intake Total 960 Balance 960 - Medications Medications: Current Medications Diltiazem HCl (Cardizem Cd) 240 mg PO DAILY [facility] Last Admin: 08/30/18 09:49 Dose: 240 mg Famotidine (Pepcid) 20 mg PO 1000,2200 [facility] Last Admin: 08/30/18 09:49 Dose: 20 mg Furosemide (Lasix) 40 mg IVP DAILY [facility] Last Admin: 08/30/18 09:48 Dose: 40 mg Polyethylene Glycol (Miralax) 17 gm PO BID [facility] Last Admin: 08/30/18 17:35 Dose: Not Given Spironolactone (Aldactone) 25 mg PO DAILY [facility] Last Admin: 08/30/18 13:10 Dose: 25 mg - Labs Labs: 08/28/18 20:47 08/28/18 20:47 Assessment and Plan - Assessment and Plan (Free Text) Assessment: Pt seen and examined by me. I have reviewed the note of the district medical examiner and I agree with it. I have discussed the assessment and plan with the resident. I have reviewed the medications and the last labs.
--- NOTE | 2018-08-30 13:05 | CP.PCM.PCO ---
Physician Communication Note - Physician Communication Note Physician Communication Note: continue to diurese as per cardiology
--- NOTE | 2018-08-30 21:40 | PN ---
DATE: 08/30/2018 SUBJECTIVE: The patient was seen and examined, I do agree with the note of the medical transcription radiology. I was involved in the patient's plan of care. The patient has acute CHF secondary to diastolic dysfunction. She also had lower extremity edema. She had been breathing better. She is on Lasix daily. She is being followed by Dr. Bolton from Cardiology. She has hypertension, that is currently controlled. She has been eating and sleeping well. PLAN: I did speak to Dr. Grider today to give him an update on the patient's diagnosis and plan of care. The patient is currently on Miralax for constipation. She is on Aldactone that was started by Dr. Bolton. We will continue to diurese the patient. Jonathan Deras MD
[2018-08-31 08:13] VITALS: PULSE 64; O2SAT 96
--- NOTE | 2018-08-31 08:14 | PN ---
DATE: 08/30/2018 SUBJECTIVE: The patient is seen sitting in chair on telemetry. She is feeling somewhat better. She continues to have some peripheral edema. CURRENT MEDICATIONS: Include Cardizem CD 240 mg daily, Lasix 40 mg IV daily, and Pepcid b.i.d. OBJECTIVE: GENERAL: She is an obese, very elderly woman. VITAL SIGNS: Blood pressure 128/76, pulse of 66 in ventricular pacing, respirations are 14, and she is afebrile. HEENT/NECK: No JVD. CHEST: Few scattered rhonchi heard. HEART: PMI displaced laterally. Heart tones are distant. ABDOMEN: Soft, obese, and nontender with normoactive bowel sounds. EXTREMITIES: Leg edema 2+. DIAGNOSTIC DATA: Morning blood work is pending. IMPRESSION: 1. Diastolic heart failure, predominantly right-sided, [id number]. 2. Conduction system disease, status post permanent pacemaker implant. 3. Chronic obesity. RECOMMENDATIONS: IV Lasix will be continued for an additional day. Oral spironolactone will be added to her regimen as well. The need for sodium and fluid restrictions were discussed with her. Hopefully, she will have improvement to the point of being able to be discharged by tomorrow. An outpatient followup will be arranged. Rom Bolton MD
--- NOTE | 2018-08-31 09:23 | DS ---
HISTORY OF PRESENT ILLNESS: This is an 88-year-old female, who had come to the hospital because of shortness of breath. She had acute on chronic diastolic heart failure. The patient was placed on IV diuretics therapy, she had been taken off her diuretic therapy. The patient has no complaints of any headaches or dizziness. No nausea. PHYSICAL EXAMINATION: VITAL SIGNS: Temperature is 97.3, pulse of 65, blood pressure 120/76, and respirations 20. GENERAL: The patient is lying in bed, flat, comfortable. HEENT: No oral lesion. Anicteric sclerae. Moist mucosa. NECK: No JVD, adenopathy, or thyromegaly. CARDIOVASCULAR: S1 and S2, regular. No murmurs, rubs, or gallops. LUNGS: Clear to auscultation bilaterally. No wheeze, rales, or rhonchi. ABDOMEN: Bowel sounds are positive, soft, nontender and nondistended. EXTREMITIES: No cyanosis, clubbing or edema. ASSESSMENT: 1. Acute on chronic diastolic congestive heart failure. 2. Pulmonary hypertension. 3. Constipation. 4. Hypertension. 5. Obese with a body mass index of 42. PLAN: The patient is currently on Aldactone, is going to continue on Cardizem. She is on Lasix daily. The patient is on MiraLax for constipation. The patient is going to continue with Lasix at home, given her prescription for Lasix 40 mg daily. Condition is stable. Activity is increased as tolerated. Jonathan Deras MD
[2018-08-31] MEDS: diltiaZEM 240 mg/24 Hours CD Cap PO SCH (09:43)
[2018-08-31] MEDS: POLYETHYLENE GLYCOL 3350 17 GM/Dose PACKET PO SCH ×2 (09:45→17:44)
[2018-08-31 09:49] VITALS: BP 128/76
--- NOTE | 2018-08-31 10:31 | PN ---
DATE: 08/31/2018 SUBJECTIVE: The patient is seen lying in bed on 3R. She is currently comfortable. She denies any dyspnea. Her leg edema is improved. Her current medications include Aldactone 25 mg daily, diltiazem CD 240 mg daily, Lasix 40 mg daily and Pepcid. OBJECTIVE: GENERAL: She is an obese and very elderly woman. VITAL SIGNS: Blood pressure 122/78 with pulse 64, respirations are 16. She is afebrile. HEENT: No JVD. CHEST: A few scattered rhonchi heard. HEART: PMI displaced laterally. Systolic murmurs present at left sternal border. ABDOMEN: Soft, obese, nontender with normoactive bowel sounds. EXTREMITIES: 1+ leg edema with mild cellulitic changes. DIAGNOSTIC DATA: Morning blood work is pending. IMPRESSION: 1. Acute diastolic heart failure, predominantly right sided, clinically improved. 2. Conduction system disease, status post permanent pacemaker implant. 3. History of prior supraventricular tachycardia. 4. Chronic obesity. 5. Chronic venous insufficiency. RECOMMENDATIONS: Lasix can be switched to oral administration after this morning's IV dose. She will continue on spirolactone for now. From a cardiac standpoint, she appears stable for discharge with outpatient followup. Rom Bolton MD
== END 2018-08-31 18:33 | disposition home or self-care (01) | DRG 292 ==
LOC: ED 18:31 → ERH 21:53 → 2RSO 23:19 → 3RSO 08-29 23:34
PROVIDERS: ADMIT Internal Medicine Nephrology; ATTEND Internal Medicine Nephrology
DX: I11.0 Hypertensive heart disease with heart failure (principal); Z68.41 Body mass index [BMI] 40.0-44.9, adult; I50.33 Acute on chronic diastolic (congestive) heart failure; I27.20 Pulmonary hypertension, unspecified; M10.9 Gout, unspecified; K59.00 Constipation, unspecified; E66.9 Obesity, unspecified; I08.1 Rheumatic disorders of both mitral and tricuspid valves; I87.2 Venous insufficiency (chronic) (peripheral); K21.9 Gastro-esophageal reflux disease without esophagitis; I44.7 Left bundle-branch block, unspecified; Z95.0 Presence of cardiac pacemaker; Z85.038 Personal history of other malignant neoplasm of large intestine; Z90.49 Acquired absence of other specified parts of digestive tract